=== PATIENT | male | born 1960 | race Caucasian/White ===

== ENCOUNTER 2017-10-25 10:28 | Inpatient (IN) | payer MEDICARE ==
[2017-10-25] MEDS: PIPER-TAZO 3.375 GM IV (PMX) 100 ML IVPB (11:10)
[2017-10-25] MEDS: morphine 2 MG INJ IV (11:10)
[2017-10-25 11:31] LABS: ADD MAN DIFF? NO
[2017-10-25 11:34] LABS: WHITE BLOOD COUNT 7.8 10^3/ul (4.8-10.8)
[2017-10-25 11:34] LABS: BASOPHILS % 0.1 % (0.0-2.0); EOSINOPHILS % 0.1 % (0.0-7.0); HEMATOCRIT 29.6 % (42.0-52.0); HEMOGLOBIN 10.1 g/dl (14.0-18.0); LYMPHOCYTES # 0.6 10^3/ul (0.8-2.9); LYMPHOCYTES % 7.7 % (15.0-51.0); MEAN CORPUSCULAR HEMOGLOBIN 28.9 pg (29.0-33.0); MEAN CORPUSCULAR HGB CONC 34.1 g/dl (32.0-37.0); MEAN CORPUSCULAR VOLUME 84.8 fl (82.0-101.0); MEAN PLATELET VOLUME 9.6 fl (7.4-10.4); MONOCYTE # 0.8 10^3/ul (0.3-0.9); MONOCYTES % 9.6 % (0.0-11.0); NEUTROPHIL # 6.4 10^3/ul (1.6-7.5); NEUTROPHILS % 81.6 % (39.0-77.0); PLATELET COUNT 222 10^3/UL (140-415); POSITIVE DIFF @See below; RED BLOOD COUNT 3.49 10^6/ul (4.70-6.10); RED CELL DISTRIBUTION WIDTH 13.5 % (11.5-14.5)
[2017-10-25 11:53] LABS: ALANINE AMINOTRANSFERASE 68 IU/L (13-69); ALBUMIN 3.7 g/dl (3.3-4.9); ALBUMIN/GLOBULIN RATIO 1.12; ALKALINE PHOSPHATASE 128 IU/L (42-121); ANION GAP 22 (8-16); ASPARTATE AMINO TRANSFERASE 62 IU/L (15-46); BILIRUBIN,INDIRECT 0.5 mg/dl (0-1.1); BILIRUBIN,TOTAL 0.5 mg/dl (0.2-1.3); BLOOD UREA NITROGEN 35 mg/dl (7-20); CALCIUM 8.5 mg/dl (8.4-10.2); CARBON DIOXIDE 22 mmol/L (21-31); CHLORIDE 84 mmol/L (97-110); CREATININE 2.24 mg/dl (0.61-1.24); GLUCOSE 131 mg/dl (70-220); POTASSIUM 5.1 mmol/L (3.5-5.1); SODIUM 123 mmol/L (135-144)
[2017-10-25] MEDS: SOD CHLORIDE 0.9% 2,040 ML IV (12:10)
[2017-10-25] MEDS: VANCOMYCIN 1 GM (PMX) 250 ML IVPB (12:11)
[2017-10-25 12:15] LABS: TROPONIN-I < 0.012 ng/ml (0.00-0.12)
[2017-10-25 12:45] LABS: INR 1.25; PARTIAL THROMBOPLASTIN TIME 40.8 Sec (25.0-35.0); PROTIME 15.9 Sec (11.9-14.9); PT RATIO 1.2
[2017-10-25] MEDS ORDERED: ZOLPIDEM 5 MG TAB PO (13:00)
[2017-10-25] MEDS ORDERED: HYDROCODONE/APAP (5/325) TAB PO (13:00)
[2017-10-25] MEDS ORDERED: ALBUTEROL 0.083% (NEB) 2.5 MG/3 ML AMP NEB (13:00)
[2017-10-25] MEDS ORDERED: NACL 0.9% 3 ML SYG IV (13:00)
[2017-10-25] MEDS ORDERED: VANCOMYCIN IV PER PHARMACY XX (13:00)
[2017-10-25 13:10] LABS: ANISOCYTOSIS 1+ (0-0); BAND NEUTROPHILS #M 2.5 10^3/ul (0.0-0.6); BAND NEUTROPHILS % (M) 33 % (0-4); ERYTHROBLAST% (NRBC) (M) 1 % (0-0); GIANT THROMBO% (M) 1 % (0-0); LYMPHOCYTES #M 0.6 10^3/ul (0.8-2.9); LYMPHOCYTES % (M) 8 % (15-51); METAMYELOCYTES %M 1 % (0-0); MONOCYTE #M 0.3 10^3/ul (0.3-0.9); MONOCYTES % (M) 4 % (0-11); MYELOCYTES % (M) 1 % (0-0); PLASMAC%(M) 1 % (0); PLATELET ESTIMATE NORMAL; POIKILOCYTOSIS 1+ (0-0); SEG NEUT #M 4.3 10^3/ul (1.6-7.5); SEGMENTED NEUTROPHILS (M) % 52 % (39-77); SMUDGE%M 5 % (0-0)
[2017-10-25 13:47] LABS: HEMOGLOBIN A1C 7.4 % (0-5.9)
[2017-10-25] MEDS ORDERED: GLUCAGON 1 MG INJ IM (14:00)
[2017-10-25] MEDS ORDERED: DEXTROSE 50% 50 ML SYRINGE IV ×2 (14:00)
[2017-10-25] MEDS ORDERED: GLUCOSE GEL 15 GRAM TUBE BUCCAL (14:00)
[2017-10-25] MEDS ORDERED: IMIPENEM-CILAST 500MG IV (PMX) 100 ML IVPB (14:00)
[2017-10-25] MEDS ORDERED: GLUCOSE GEL 15 GRAM TUBE PO ×2 (14:00)
[2017-10-25 14:13] LABS: LACTIC ACID 1.1 mmol/L (0.5-2.0)
[2017-10-25 16:29] LABS: LACTIC ACID 1.3 mmol/L (0.5-2.0)
[2017-10-25 16:59] LABS: ANION GAP 11 (8-16); BLOOD UREA NITROGEN 29 mg/dl (7-20); CALCIUM 6.6 mg/dl (8.4-10.2); CARBON DIOXIDE 22 mmol/L (21-31); CHLORIDE 100 mmol/L (97-110); GLUCOSE 72 mg/dl (70-220); POTASSIUM 3.8 mmol/L (3.5-5.1); SODIUM 129 mmol/L (135-144)
[2017-10-25] MEDS: SOD CHLORIDE 0.9% 1,000 ML IV (17:05)
[2017-10-25] MEDS: ACETAMINOPHEN 325 MG TAB PO ×2 (17:06→20:23)
[2017-10-25] MEDS: FAMOTIDINE 20 MG TAB PO (17:06)
[2017-10-25] MEDS: INSULIN ASPART [NOVOLOG] 3 ML PEN SC (17:29)
[2017-10-25] MEDS: MEROPENEM 1 GM/50ML(PMX) 50 ML IVPB ×2 (18:22→20:36)
[2017-10-25 18:23] LABS: OSMOLALITY 265 mOsm/kg (280-295)
[2017-10-25] MEDS: SENNA/DOCUSATE NA (8.6MG/50MG) TAB PO (20:24)
[2017-10-25] MEDS: TAMSULOSIN (SR) 0.4 MG CAP PO (20:24)
[2017-10-25] MEDS: LEVETIRACETAM 500 MG TAB PO (20:24)
[2017-10-25] MEDS: ATORVASTATIN 40 MG TAB PO (20:24)
[2017-10-25] MEDS ORDERED: AMITRIPTYLINE 50 MG TAB PO (21:00)
[2017-10-25 21:45] LABS: SODIUM 123 mmol/L (135-144)
[2017-10-26] MEDS: SOD CHLORIDE 0.9% 1,000 ML IV ×3 (01:54→14:34)
[2017-10-26 07:28] LABS: WHITE BLOOD COUNT 7.7 10^3/ul (4.8-10.8)
[2017-10-26 07:28] LABS: ABNORMAL IP MESSAGE 1; HEMATOCRIT 20.5 % (42.0-52.0); MEAN CORPUSCULAR HEMOGLOBIN 29.4 pg (29.0-33.0); MEAN CORPUSCULAR HGB CONC 34.1 g/dl (32.0-37.0); MEAN CORPUSCULAR VOLUME 86.1 fl (82.0-101.0); PLATELET COUNT 147 10^3/UL (140-415); POSITIVE DIFF @See below; RED BLOOD COUNT 2.38 10^6/ul (4.70-6.10); RED CELL DISTRIBUTION WIDTH 13.6 % (11.5-14.5)
[2017-10-26 07:36] LABS: ADD MAN DIFF? YES
[2017-10-26 07:39] LABS: ALANINE AMINOTRANSFERASE 60 IU/L (13-69); ALBUMIN 2.5 g/dl (3.3-4.9); ALBUMIN/GLOBULIN RATIO 0.89; ALKALINE PHOSPHATASE 84 IU/L (42-121); ANION GAP 11 (8-16); ASPARTATE AMINO TRANSFERASE 48 IU/L (15-46); BILIRUBIN,INDIRECT 0.3 mg/dl (0-1.1); BILIRUBIN,TOTAL 0.3 mg/dl (0.2-1.3); BLOOD UREA NITROGEN 32 mg/dl (7-20); CALCIUM 7.8 mg/dl (8.4-10.2); CARBON DIOXIDE 22 mmol/L (21-31); CHLORIDE 99 mmol/L (97-110); CREATININE 1.62 mg/dl (0.61-1.24); GLUCOSE 119 mg/dl (70-220); MAGNESIUM 1.6 mg/dl (1.7-2.5); POTASSIUM 4.3 mmol/L (3.5-5.1); SODIUM 128 mmol/L (135-144); TOTAL PROTEIN 5.3 g/dl (6.1-8.1)
[2017-10-26 07:48] LABS: ADD UMIC YES; UR ASCORBIC ACID NEGATIVE (NEGATIVE); UR BACTERIA FEW /HPF (NONE SEEN); UR BILIRUBIN (Dip) NEGATIVE (NEGATIVE); UR BLOOD (Dip) 3+ mg/dL (NEGATIVE); UR CLARITY SLIGHTLY CLOUDY (CLEAR); UR COLOR YELLOW (YELLOW); UR GLUCOSE (Dip) NEGATIVE (NEGATIVE); UR KETONES (Dip) NEGATIVE (NEGATIVE); UR LEUKOCYTE ESTERASE (Dip) NEGATIVE Leu/ul (NEGATIVE); UR NITRITE (Dip) NEGATIVE (NEGATIVE); UR RBC > 182 /HPF (0-5); UR TOTAL PROTEIN (Dip) 2+ mg/dl (NEGATIVE); UR UROBILINOGEN (Dip) NEGATIVE (NEGATIVE); UR WBC 13 /HPF (0-5)
[2017-10-26] MEDS: morphine 2 MG INJ IV (07:52)
[2017-10-26] MEDS: VANCOMYCIN 1 GM 250 ML IVPB (07:56)
[2017-10-26 07:57] LABS: CREATININE,URINE RANDOM 52.44 mg/dl (20-370)
[2017-10-26 07:57] LABS: SODIUM,URINE RANDOM 27 mmol/L (30-90)
[2017-10-26] MEDS: LEVETIRACETAM 500 MG TAB PO ×2 (07:57→21:17)
[2017-10-26] MEDS: SENNA/DOCUSATE NA (8.6MG/50MG) TAB PO ×2 (07:57→21:17)
[2017-10-26] MEDS: FAMOTIDINE 20 MG TAB PO (07:58)
[2017-10-26] MEDS ORDERED: VANCOMYCIN 750 MG in DEXTROSE 5% 150 ML IVPB (08:00)
[2017-10-26] MEDS: AMLODIPINE 5 MG TAB PO (08:08)
[2017-10-26] MEDS: NIFEdipine (XL) 60 MG TAB PO (08:08)
[2017-10-26] MEDS: ATENOLOL 100 MG TAB PO (08:09)
[2017-10-26] MEDS: MEROPENEM 1 GM/50ML(PMX) 50 ML IVPB ×2 (08:11→21:18)
[2017-10-26 08:34] LABS: OSMOLALITY,URINE 257 mOsm/kg (250-1200)
[2017-10-26] MEDS ORDERED: INSULIN GLARGINE [LANtus] 3 ML PEN SC (09:00)
[2017-10-26] MEDS: INSULIN ASPART [NOVOLOG] 3 ML PEN SC ×3 (09:12→16:59)
[2017-10-26] MEDS: INSULIN GLARGINE [LANtus] 3 ML PEN SC (09:12)
[2017-10-26 09:37] LABS: BAND NEUTROPHILS #M 0.7 10^3/ul (0.0-0.6); BAND NEUTROPHILS % (M) 10 % (0-4); EOSINOPHILS % (M) 3 % (0-7); LYMPHOCYTES % (M) 13 % (15-51); MONOCYTE #M 0.4 10^3/ul (0.3-0.9); MONOCYTES % (M) 6 % (0-11); PLATELET ESTIMATE NORMAL; POLYCHROMASIA 1+ (0-0); SEG NEUT #M 5.3 10^3/ul (1.6-7.5); SEGMENTED NEUTROPHILS (M) % 68 % (39-77)
[2017-10-26 11:54] LABS: HEMATOCRIT 22.7 % (42.0-52.0); HEMOGLOBIN 7.8 g/dl (14.0-18.0)
[2017-10-26] MEDS: HEPARIN 5,000 UNIT/0.5 ML VIAL SC (13:13)
[2017-10-26] MEDS: traMADol 50 MG TAB PO ×2 (14:46→21:17)
[2017-10-26 15:30] LABS: ANION GAP 12 (8-16); BLOOD UREA NITROGEN 26 mg/dl (7-20); CALCIUM 8.2 mg/dl (8.4-10.2); CARBON DIOXIDE 22 mmol/L (21-31); CHLORIDE 102 mmol/L (97-110); CREATININE 1.28 mg/dl (0.61-1.24); GLUCOSE 156 mg/dl (70-220); POTASSIUM 4.3 mmol/L (3.5-5.1); SODIUM 132 mmol/L (135-144)
[2017-10-26] MEDS: ATORVASTATIN 40 MG TAB PO (21:17)
[2017-10-26] MEDS: TAMSULOSIN (SR) 0.4 MG CAP PO (21:17)
[2017-10-27] MEDS: SOD CHLORIDE 0.9% 1,000 ML IV ×3 (04:22→21:24)
[2017-10-27] MEDS: INSULIN ASPART [NOVOLOG] 3 ML PEN SC ×3 (07:53→17:33)
[2017-10-27] MEDS: VANCOMYCIN 1 GM 250 ML IVPB ×2 (07:54→21:23)
[2017-10-27 08:37] LABS: WHITE BLOOD COUNT 4.7 10^3/ul (4.8-10.8)
[2017-10-27 08:37] LABS: ABNORMAL IP MESSAGE 1; HEMATOCRIT 19.3 % (42.0-52.0); MEAN CORPUSCULAR HEMOGLOBIN 28.8 pg (29.0-33.0); MEAN CORPUSCULAR HGB CONC 34.2 g/dl (32.0-37.0); MEAN CORPUSCULAR VOLUME 84.3 fl (82.0-101.0); MEAN PLATELET VOLUME 10.1 fl (7.4-10.4); PLATELET COUNT 135 10^3/UL (140-415); POSITIVE DIFF @See below; RED BLOOD COUNT 2.29 10^6/ul (4.70-6.10); RED CELL DISTRIBUTION WIDTH 13.7 % (11.5-14.5)
[2017-10-27 08:46] LABS: ADD MAN DIFF? YES; HEMOGLOBIN 6.6 g/dl (14.0-18.0)
[2017-10-27] MEDS: LEVETIRACETAM 500 MG TAB PO ×2 (09:00→21:23)
[2017-10-27] MEDS: FAMOTIDINE 20 MG TAB PO (09:00)
[2017-10-27] MEDS: ATENOLOL 100 MG TAB PO (09:00)
[2017-10-27] MEDS: SENNA/DOCUSATE NA (8.6MG/50MG) TAB PO ×2 (09:00→21:23)
[2017-10-27] MEDS: INSULIN GLARGINE [LANtus] 3 ML PEN SC (09:00)
[2017-10-27 09:02] LABS: ANION GAP 8 (8-16); BLOOD UREA NITROGEN 19 mg/dl (7-20); CARBON DIOXIDE 24 mmol/L (21-31); CHLORIDE 107 mmol/L (97-110); CREATININE 0.89 mg/dl (0.61-1.24); GLUCOSE 122 mg/dl (70-220); MAGNESIUM 1.7 mg/dl (1.7-2.5); PHOSPHORUS 2.6 mg/dl (2.5-4.9); POTASSIUM 4.1 mmol/L (3.5-5.1); SODIUM 135 mmol/L (135-144)
[2017-10-27 09:15] LABS: BAND NEUTROPHILS #M 0.6 10^3/ul (0.0-0.6); BAND NEUTROPHILS % (M) 13 % (0-4); GIANT THROMBO% (M) 2 % (0-0); LYMPHOCYTES #M 0.7 10^3/ul (0.8-2.9); LYMPHOCYTES % (M) 15 % (15-51); MONOCYTE #M 0.4 10^3/ul (0.3-0.9); MONOCYTES % (M) 10 % (0-11); PLATELET ESTIMATE DECREASED; SEG NEUT #M 2.9 10^3/ul (1.6-7.5); SEGMENTED NEUTROPHILS (M) % 62 % (39-77); SMUDGE%M 7 % (0-0)
[2017-10-27] MEDS: MEROPENEM 1 GM/50ML(PMX) 50 ML IVPB ×3 (10:05→21:24)
[2017-10-27 11:36] LABS: HEMATOCRIT 21.5 % (42.0-52.0); HEMOGLOBIN 7.4 g/dl (14.0-18.0); MEAN CORPUSCULAR HEMOGLOBIN 29.4 pg (29.0-33.0); MEAN CORPUSCULAR HGB CONC 34.4 g/dl (32.0-37.0); MEAN CORPUSCULAR VOLUME 85.3 fl (82.0-101.0); MEAN PLATELET VOLUME 9.6 fl (7.4-10.4); PLATELET COUNT 140 10^3/UL (140-415); POSITIVE DIFF @See below; RED BLOOD COUNT 2.52 10^6/ul (4.70-6.10); RED CELL DISTRIBUTION WIDTH 13.6 % (11.5-14.5)
[2017-10-27 11:45] LABS: ADD MAN DIFF? YES
[2017-10-27 12:40] LABS: ANISOCYTOSIS 1+ (0-0); BAND NEUTROPHILS #M 0.5 10^3/ul (0.0-0.6); BAND NEUTROPHILS % (M) 11 % (0-4); BASOPHILS % (M) 1 % (0-2); BURR CELLS 1+ (0-0); EOSINOPHILS % (M) 3 % (0-7); LYMPHOCYTES #M 1.1 10^3/ul (0.8-2.9); LYMPHOCYTES % (M) 23 % (15-51); MICROCYTOSIS 1+ (0-0); MONOCYTE #M 0.6 10^3/ul (0.3-0.9); MONOCYTES % (M) 12 % (0-11); PLATELET ESTIMATE NORMAL; POIKILOCYTOSIS 1+ (0-0); POLYCHROMASIA 1+ (0-0); SEG NEUT #M 2.5 10^3/ul (1.6-7.5); SEGMENTED NEUTROPHILS (M) % 50 % (39-77); SMUDGE%M 17 % (0-0)
[2017-10-27 14:22] LABS: CREATININE, RANDOM URINE 61 mg/dL (20-370); MICROALBUMIN 25.6 mg/dL; MICROALBUMIN/CREATININE RATIO 420 (<30)
[2017-10-27 15:50] LABS: IMMEDIATE SPIN CROSSMATCH 1 1
[2017-10-27] MEDS: TAMSULOSIN (SR) 0.4 MG CAP PO (21:23)
[2017-10-27] MEDS: ATORVASTATIN 40 MG TAB PO (21:24)
[2017-10-27] MEDS: traMADol 50 MG TAB PO (21:27)
[2017-10-27] MEDS: morphine 2 MG INJ IV (22:54)
[2017-10-28] MEDS: BUPIVACAINE 0.5% 30 ML VIAL INJ
[2017-10-28] MEDS: POLYMYXIN/BACITRACIN 1L IRRIG IRR
[2017-10-28] MEDS: BACITRACIN 50000 UNITS INJ IRR
[2017-10-28] MEDS: MEROPENEM 1 GM/50ML(PMX) 50 ML IVPB ×3 (05:30→21:44)
[2017-10-28 07:25] LABS: HEMATOCRIT 25.3 % (42.0-52.0); HEMOGLOBIN 8.6 g/dl (14.0-18.0); MEAN CORPUSCULAR VOLUME 82.4 fl (82.0-101.0); MEAN PLATELET VOLUME 9.8 fl (7.4-10.4); PLATELET COUNT 171 10^3/UL (140-415); POSITIVE DIFF @See below; RED BLOOD COUNT 3.07 10^6/ul (4.70-6.10); RED CELL DISTRIBUTION WIDTH 13.8 % (11.5-14.5)
[2017-10-28 07:28] LABS: ADD MAN DIFF? YES
[2017-10-28] MEDS ORDERED: MIDAZOLAM 1 MG/ML 2 ML INJ (07:55)
[2017-10-28] MEDS: INSULIN ASPART [NOVOLOG] 3 ML PEN SC ×3 (07:55→17:56)
[2017-10-28] MEDS ORDERED: FENTAnyl 50 MCG/ML VIAL (07:56)
[2017-10-28 07:57] LABS: ANION GAP 11 (8-16); BLOOD UREA NITROGEN 9 mg/dl (7-20); CALCIUM 8.2 mg/dl (8.4-10.2); CARBON DIOXIDE 24 mmol/L (21-31); CHLORIDE 103 mmol/L (97-110); CREATININE 0.59 mg/dl (0.61-1.24); GLUCOSE 124 mg/dl (70-220); MAGNESIUM 1.4 mg/dl (1.7-2.5); PHOSPHORUS 2.4 mg/dl (2.5-4.9); POTASSIUM 3.5 mmol/L (3.5-5.1); SODIUM 134 mmol/L (135-144)
[2017-10-28 08:11] LABS: BAND NEUTROPHILS #M 0.1 10^3/ul (0.0-0.6); BAND NEUTROPHILS % (M) 3 % (0-4); EOSINOPHILS % (M) 1 % (0-7); LYMPHOCYTES % (M) 34 % (15-51); MONOCYTE #M 0.3 10^3/ul (0.3-0.9); MONOCYTES % (M) 5 % (0-11); PLATELET ESTIMATE NORMAL; SEG NEUT #M 3.4 10^3/ul (1.6-7.5); SEGMENTED NEUTROPHILS (M) % 57 % (39-77); SMUDGE%M 9 % (0-0)
[2017-10-28] MEDS ORDERED: BUPIVACAINE 0.5% (SDV) 30 ML INJ (08:34)
[2017-10-28] MEDS ORDERED: LIDOCAINE 2% (SDV) 5 ML INJ (08:51)
[2017-10-28] MEDS ORDERED: CEFAZOLIN 1 GM INJ (08:51)
[2017-10-28] MEDS ORDERED: ETOMIDATE 20 MG INJ (08:51)
[2017-10-28] MEDS ORDERED: ONDANSETRON 4 MG INJ (08:54)
[2017-10-28] MEDS: SENNA/DOCUSATE NA (8.6MG/50MG) TAB PO ×2 (11:17→21:44)
[2017-10-28] MEDS: MAGNESIUM SULFATE 2 GM/50 ML 50 ML IVPB (11:17)
[2017-10-28] MEDS: LEVETIRACETAM 500 MG TAB PO ×2 (11:17→21:44)
[2017-10-28] MEDS: FAMOTIDINE 20 MG TAB PO (11:17)
[2017-10-28] MEDS: ATENOLOL 100 MG TAB PO (11:18)
[2017-10-28] MEDS: INSULIN GLARGINE [LANtus] 3 ML PEN SC (11:23)
[2017-10-28] MEDS: VANCOMYCIN 1 GM 250 ML IVPB ×2 (11:29→23:08)
[2017-10-28] MEDS ORDERED: ACETAMINOPHEN 325 MG TAB PO (11:30)
[2017-10-28] MEDS: HYDROCODONE/APAP (10/325) TAB PO ×4 (11:35→23:09)
[2017-10-28] MEDS: POTASSIUM PHOSPHATE 20 MEQ in SOD CHLORIDE 0.9% 250 ML IVPB (11:36)
[2017-10-28] MEDS: TAMSULOSIN (SR) 0.4 MG CAP PO (21:44)
[2017-10-28] MEDS: ATORVASTATIN 40 MG TAB PO (21:44)
[2017-10-28] MEDS: SOD CHLORIDE 0.9% 1,000 ML IV (21:46)
[2017-10-28 22:24] LABS: VANCOMYCIN,TROUGH 10.9 ug/ml (10.0-20.0)
[2017-10-29 05:51] LABS: ANION GAP 7 (8-16); BLOOD UREA NITROGEN 8 mg/dl (7-20); CALCIUM 7.7 mg/dl (8.4-10.2); CARBON DIOXIDE 26 mmol/L (21-31); CHLORIDE 107 mmol/L (97-110); CREATININE 0.66 mg/dl (0.61-1.24); GLUCOSE 164 mg/dl (70-220); MAGNESIUM 1.7 mg/dl (1.7-2.5); PHOSPHORUS 2.8 mg/dl (2.5-4.9); POTASSIUM 3.5 mmol/L (3.5-5.1); SODIUM 136 mmol/L (135-144)
[2017-10-29] MEDS: MEROPENEM 1 GM/50ML(PMX) 50 ML IVPB ×3 (06:35→23:00)
[2017-10-29] MEDS: FAMOTIDINE 20 MG TAB PO (08:13)
[2017-10-29] MEDS: LEVETIRACETAM 500 MG TAB PO ×2 (08:13→21:06)
[2017-10-29] MEDS: SENNA/DOCUSATE NA (8.6MG/50MG) TAB PO ×2 (08:13→21:06)
[2017-10-29] MEDS: HYDROCODONE/APAP (10/325) TAB PO ×3 (08:18→19:45)
[2017-10-29] MEDS: ATENOLOL 100 MG TAB PO (10:16)
[2017-10-29] MEDS: INSULIN GLARGINE [LANtus] 3 ML PEN SC (10:17)
[2017-10-29] MEDS: INSULIN ASPART [NOVOLOG] 3 ML PEN SC ×3 (10:18→17:36)
[2017-10-29] MEDS: VANCOMYCIN 1.25 GM in SOD CHLORIDE 0.9% 250 ML IVPB (12:12)
[2017-10-29] MEDS: morphine 2 MG INJ IV ×2 (17:43→23:00)
[2017-10-29] MEDS: TAMSULOSIN (SR) 0.4 MG CAP PO (21:06)
[2017-10-29] MEDS: ATORVASTATIN 40 MG TAB PO (21:06)
[2017-10-30] MEDS: VANCOMYCIN 1.25 GM in SOD CHLORIDE 0.9% 250 ML IVPB ×2 (00:11→12:12)
[2017-10-30] MEDS: HYDROCODONE/APAP (10/325) TAB PO ×5 (00:50→20:38)
[2017-10-30] MEDS: MEROPENEM 1 GM/50ML(PMX) 50 ML IVPB ×3 (06:08→20:40)
[2017-10-30] MEDS: HEPARIN 5,000 UNIT/0.5 ML VIAL SC ×2 (06:09→20:41)
[2017-10-30 07:32] LABS: INR 1.19; PROTIME 15.3 Sec (11.9-14.9); PT RATIO 1.2
[2017-10-30 07:33] LABS: PARTIAL THROMBOPLASTIN TIME 34.6 Sec (25.0-35.0)
[2017-10-30 07:43] LABS: ANION GAP 9 (8-16); BLOOD UREA NITROGEN 9 mg/dl (7-20); CARBON DIOXIDE 28 mmol/L (21-31); CHLORIDE 104 mmol/L (97-110); GLUCOSE 173 mg/dl (70-220); MAGNESIUM 1.6 mg/dl (1.7-2.5); PHOSPHORUS 2.7 mg/dl (2.5-4.9); POTASSIUM 3.7 mmol/L (3.5-5.1); SODIUM 137 mmol/L (135-144)
[2017-10-30] MEDS: SENNA/DOCUSATE NA (8.6MG/50MG) TAB PO ×2 (08:01→20:41)
[2017-10-30] MEDS: ATENOLOL 100 MG TAB PO (08:02)
[2017-10-30] MEDS: FAMOTIDINE 20 MG TAB PO (08:02)
[2017-10-30] MEDS: LEVETIRACETAM 500 MG TAB PO ×2 (08:02→20:41)
[2017-10-30] MEDS: INSULIN ASPART [NOVOLOG] 3 ML PEN SC ×7 (08:07→20:41)
[2017-10-30] MEDS: INSULIN GLARGINE [LANtus] 3 ML PEN SC (08:09)
[2017-10-30] MEDS: MAGNESIUM SULFATE 2 GM/50 ML 50 ML IVPB (09:47)
[2017-10-30] MEDS: AMLODIPINE 5 MG TAB PO (09:47)
[2017-10-30] MEDS: hydrALAzine 20 MG INJ IV (15:29)
[2017-10-30] MEDS: morphine 2 MG INJ IV (15:43)
[2017-10-30] MEDS: traMADol 50 MG TAB PO (17:45)
[2017-10-30] MEDS: ATORVASTATIN 40 MG TAB PO (20:41)
[2017-10-30] MEDS: TAMSULOSIN (SR) 0.4 MG CAP PO (20:41)
[2017-10-31] MEDS: VANCOMYCIN 1.25 GM in SOD CHLORIDE 0.9% 250 ML IVPB (00:20)
[2017-10-31] MEDS: ACCU-CHEK XX (00:58)
[2017-10-31] MEDS: hydrALAzine 20 MG INJ IV (02:29)
[2017-10-31] MEDS: MEROPENEM 1 GM/50ML(PMX) 50 ML IVPB ×3 (05:24→21:46)
[2017-10-31] MEDS: HYDROCODONE/APAP (10/325) TAB PO ×4 (06:49→20:25)
[2017-10-31 07:14] LABS: ABNORMAL IP MESSAGE 1; HEMATOCRIT 26.2 % (42.0-52.0); HEMOGLOBIN 8.7 g/dl (14.0-18.0); MEAN CORPUSCULAR HEMOGLOBIN 28.6 pg (29.0-33.0); MEAN CORPUSCULAR HGB CONC 33.2 g/dl (32.0-37.0); MEAN CORPUSCULAR VOLUME 86.2 fl (82.0-101.0); MEAN PLATELET VOLUME 9.8 fl (7.4-10.4); PLATELET COUNT 221 10^3/UL (140-415); POSITIVE DIFF @See below; RED BLOOD COUNT 3.04 10^6/ul (4.70-6.10); RED CELL DISTRIBUTION WIDTH 13.7 % (11.5-14.5)
[2017-10-31 07:14] LABS: WHITE BLOOD COUNT 7.9 10^3/ul (4.8-10.8)
[2017-10-31 07:15] LABS: ADD MAN DIFF? YES
[2017-10-31 07:40] LABS: ANION GAP 10 (8-16); BLOOD UREA NITROGEN 12 mg/dl (7-20); CALCIUM 8.2 mg/dl (8.4-10.2); CARBON DIOXIDE 27 mmol/L (21-31); CHLORIDE 103 mmol/L (97-110); CREATININE 0.77 mg/dl (0.61-1.24); GLUCOSE 165 mg/dl (70-220); SODIUM 136 mmol/L (135-144)
[2017-10-31] MEDS: SENNA/DOCUSATE NA (8.6MG/50MG) TAB PO ×2 (08:02→20:27)
[2017-10-31] MEDS: LEVETIRACETAM 500 MG TAB PO ×2 (08:02→20:26)
[2017-10-31] MEDS: ATENOLOL 100 MG TAB PO (08:02)
[2017-10-31] MEDS: AMLODIPINE 5 MG TAB PO (08:02)
[2017-10-31] MEDS: FAMOTIDINE 20 MG TAB PO (08:02)
[2017-10-31] MEDS: HEPARIN 5,000 UNIT/0.5 ML VIAL SC ×2 (08:05→20:31)
[2017-10-31] MEDS: INSULIN ASPART [NOVOLOG] 3 ML PEN SC ×7 (08:05→20:35)
[2017-10-31] MEDS: INSULIN GLARGINE [LANtus] 3 ML PEN SC (08:06)
[2017-10-31 09:14] LABS: ANISOCYTOSIS 1+ (0-0); BAND NEUTROPHILS #M 0.2 10^3/ul (0.0-0.6); BAND NEUTROPHILS % (M) 3 % (0-4); EOSINOPHILS % (M) 2 % (0-7); LYMPHOCYTES #M 2.2 10^3/ul (0.8-2.9); LYMPHOCYTES % (M) 28 % (15-51); MICROCYTOSIS 1+ (0-0); MONOCYTE #M 0.5 10^3/ul (0.3-0.9); MONOCYTES % (M) 7 % (0-11); PLATELET ESTIMATE NORMAL; POLYCHROMASIA 3+ (0-0); SEG NEUT #M 4.8 10^3/ul (1.6-7.5); SEGMENTED NEUTROPHILS (M) % 60 % (39-77); SMUDGE%M 9 % (0-0)
[2017-10-31 12:26] LABS: VANCOMYCIN,TROUGH 20.2 ug/ml (10.0-20.0)
[2017-10-31] MEDS: VANCOMYCIN 750 MG in DEXTROSE 5% 150 ML IVPB (17:32)
[2017-10-31] MEDS: ATORVASTATIN 40 MG TAB PO (20:27)
[2017-10-31] MEDS: TAMSULOSIN (SR) 0.4 MG CAP PO (20:27)
[2017-11-01] MEDS: HYDROCODONE/APAP (10/325) TAB PO ×5 (00:50→20:55)
[2017-11-01] MEDS: ACCU-CHEK XX (02:00)
[2017-11-01] MEDS: MEROPENEM 1 GM/50ML(PMX) 50 ML IVPB ×2 (05:48→14:52)
[2017-11-01 05:52] LABS: ABNORMAL IP MESSAGE 1; HEMATOCRIT 24.3 % (42.0-52.0); HEMOGLOBIN 8.1 g/dl (14.0-18.0); MEAN CORPUSCULAR HEMOGLOBIN 28.3 pg (29.0-33.0); MEAN CORPUSCULAR HGB CONC 33.3 g/dl (32.0-37.0); MEAN PLATELET VOLUME 9.9 fl (7.4-10.4); PLATELET COUNT 258 10^3/UL (140-415); POSITIVE DIFF @See below; RED BLOOD COUNT 2.86 10^6/ul (4.70-6.10); RED CELL DISTRIBUTION WIDTH 13.9 % (11.5-14.5)
[2017-11-01 05:52] LABS: WHITE BLOOD COUNT 7.3 10^3/ul (4.8-10.8)
[2017-11-01 06:26] LABS: ADD MAN DIFF? YES
[2017-11-01 06:40] LABS: ANION GAP 8 (8-16); BLOOD UREA NITROGEN 12 mg/dl (7-20); CALCIUM 8.6 mg/dl (8.4-10.2); CARBON DIOXIDE 30 mmol/L (21-31); CHLORIDE 105 mmol/L (97-110); CREATININE 0.71 mg/dl (0.61-1.24); GLUCOSE 119 mg/dl (70-220); POTASSIUM 4.1 mmol/L (3.5-5.1); SODIUM 139 mmol/L (135-144)
[2017-11-01] MEDS: VANCOMYCIN 750 MG in DEXTROSE 5% 150 ML IVPB (07:02)
[2017-11-01 07:49] LABS: BASOPHIL #M 0.1 10^3/ul (0.0-0.0); BASOPHILS % (M) 2 % (0-2); EOSINOPHILS % (M) 4 % (0-7); LYMPHOCYTES #M 1.6 10^3/ul (0.8-2.9); LYMPHOCYTES % (M) 22 % (15-51); MONOCYTE #M 0.6 10^3/ul (0.3-0.9); MONOCYTES % (M) 9 % (0-11); PLATELET ESTIMATE NORMAL; POLYCHROMASIA 1+ (0-0); SEGMENTED NEUTROPHILS (M) % 63 % (39-77); SMUDGE%M 16 % (0-0)
[2017-11-01] MEDS: INSULIN ASPART [NOVOLOG] 3 ML PEN SC ×7 (08:14→21:00)
[2017-11-01] MEDS: INSULIN GLARGINE [LANtus] 3 ML PEN SC (08:59)
[2017-11-01] MEDS: FAMOTIDINE 20 MG TAB PO (09:00)
[2017-11-01] MEDS: LEVETIRACETAM 500 MG TAB PO ×2 (09:00→21:00)
[2017-11-01] MEDS: AMLODIPINE 5 MG TAB PO (09:00)
[2017-11-01] MEDS: HEPARIN 5,000 UNIT/0.5 ML VIAL SC ×2 (09:01→21:02)
[2017-11-01] MEDS: SENNA/DOCUSATE NA (8.6MG/50MG) TAB PO ×2 (09:01→21:00)
[2017-11-01] MEDS: ATENOLOL 100 MG TAB PO (09:01)
[2017-11-01] MEDS: morphine 2 MG INJ IV ×4 (10:20→23:29)
[2017-11-01] MEDS: LEVOFLOXACIN 750MG/D5W (PMX) 150 ML IVPB (17:59)
[2017-11-01] MEDS: ATORVASTATIN 40 MG TAB PO (21:00)
[2017-11-01] MEDS: TAMSULOSIN (SR) 0.4 MG CAP PO (21:00)
[2017-11-02] MEDS: ACCU-CHEK XX (02:00)
[2017-11-02] MEDS: HYDROCODONE/APAP (10/325) TAB PO ×5 (06:05→23:12)
[2017-11-02 06:07] LABS: ADD MAN DIFF? NO
[2017-11-02 06:11] LABS: WHITE BLOOD COUNT 8.4 10^3/ul (4.8-10.8)
[2017-11-02 06:11] LABS: BASOPHILS % 0.1 % (0.0-2.0); EOSINOPHILS # 0.1 10^3/ul (0.0-0.5); EOSINOPHILS % 1.4 % (0.0-7.0); HEMATOCRIT 26.4 % (42.0-52.0); HEMOGLOBIN 8.6 g/dl (14.0-18.0); LYMPHOCYTES # 1.9 10^3/ul (0.8-2.9); LYMPHOCYTES % 22.5 % (15.0-51.0); MEAN CORPUSCULAR HGB CONC 32.6 g/dl (32.0-37.0); MEAN PLATELET VOLUME 9.7 fl (7.4-10.4); MONOCYTE # 1.4 10^3/ul (0.3-0.9); MONOCYTES % 17.2 % (0.0-11.0); NEUTROPHIL # 4.5 10^3/ul (1.6-7.5); NEUTROPHILS % 54.2 % (39.0-77.0); PLATELET COUNT 291 10^3/UL (140-415); RED BLOOD COUNT 3.07 10^6/ul (4.70-6.10); RED CELL DISTRIBUTION WIDTH 13.8 % (11.5-14.5)
[2017-11-02 06:35] LABS: ANION GAP 8 (8-16); BLOOD UREA NITROGEN 12 mg/dl (7-20); CALCIUM 8.7 mg/dl (8.4-10.2); CARBON DIOXIDE 31 mmol/L (21-31); CHLORIDE 103 mmol/L (97-110); CREATININE 0.83 mg/dl (0.61-1.24); GLUCOSE 134 mg/dl (70-220); POTASSIUM 4.2 mmol/L (3.5-5.1); SODIUM 138 mmol/L (135-144)
[2017-11-02] MEDS: INSULIN ASPART [NOVOLOG] 3 ML PEN SC ×8 (08:00→21:00)
[2017-11-02] MEDS: HEPARIN 5,000 UNIT/0.5 ML VIAL SC ×2 (08:38→22:02)
[2017-11-02] MEDS: INSULIN GLARGINE [LANtus] 3 ML PEN SC (08:38)
[2017-11-02] MEDS: LEVETIRACETAM 500 MG TAB PO ×2 (08:44→22:00)
[2017-11-02] MEDS: SENNA/DOCUSATE NA (8.6MG/50MG) TAB PO ×2 (08:45→22:00)
[2017-11-02] MEDS: AMLODIPINE 5 MG TAB PO (08:45)
[2017-11-02] MEDS: FAMOTIDINE 20 MG TAB PO (08:46)
[2017-11-02] MEDS: ATENOLOL 100 MG TAB PO (08:46)
[2017-11-02] MEDS: morphine 2 MG INJ IV (13:02)
[2017-11-02] MEDS: DOCUSATE SODIUM 100 MG CAP PO (13:37)
[2017-11-02] MEDS: POLYETHYLENE GLYCOL 17 GM PACKET PO (17:31)
[2017-11-02] MEDS: LEVOFLOXACIN 750MG/D5W (PMX) 150 ML IVPB (17:34)
[2017-11-02] MEDS: ATORVASTATIN 40 MG TAB PO (22:00)
[2017-11-02] MEDS: TAMSULOSIN (SR) 0.4 MG CAP PO (22:00)
[2017-11-03] MEDS: ACCU-CHEK XX (02:00)
[2017-11-03] MEDS: HYDROCODONE/APAP (10/325) TAB PO ×5 (03:05→21:50)
[2017-11-03 05:55] LABS: WHITE BLOOD COUNT 7.9 10^3/ul (4.8-10.8)
[2017-11-03 05:55] LABS: HEMATOCRIT 27.2 % (42.0-52.0); MEAN CORPUSCULAR HEMOGLOBIN 28.7 pg (29.0-33.0); MEAN CORPUSCULAR HGB CONC 33.1 g/dl (32.0-37.0); MEAN CORPUSCULAR VOLUME 86.6 fl (82.0-101.0); MEAN PLATELET VOLUME 9.8 fl (7.4-10.4); PLATELET COUNT 304 10^3/UL (140-415); RED BLOOD COUNT 3.14 10^6/ul (4.70-6.10); RED CELL DISTRIBUTION WIDTH 13.5 % (11.5-14.5)
[2017-11-03 06:10] LABS: ADD MAN DIFF? YES
[2017-11-03 06:34] LABS: ANION GAP 8 (8-16); BLOOD UREA NITROGEN 17 mg/dl (7-20); CALCIUM 8.7 mg/dl (8.4-10.2); CARBON DIOXIDE 30 mmol/L (21-31); CHLORIDE 104 mmol/L (97-110); CREATININE 0.83 mg/dl (0.61-1.24); GLUCOSE 152 mg/dl (70-220); POTASSIUM 4.2 mmol/L (3.5-5.1); SODIUM 138 mmol/L (135-144)
[2017-11-03] MEDS: INSULIN ASPART [NOVOLOG] 3 ML PEN SC ×7 (08:00→21:00)
[2017-11-03] MEDS: POLYETHYLENE GLYCOL 17 GM PACKET PO (08:09)
[2017-11-03] MEDS: FAMOTIDINE 20 MG TAB PO (08:10)
[2017-11-03] MEDS: ATENOLOL 100 MG TAB PO (08:11)
[2017-11-03] MEDS: LEVETIRACETAM 500 MG TAB PO ×2 (08:12→21:50)
[2017-11-03] MEDS: AMLODIPINE 5 MG TAB PO (08:12)
[2017-11-03] MEDS: SENNA/DOCUSATE NA (8.6MG/50MG) TAB PO ×2 (08:12→21:49)
[2017-11-03] MEDS: HEPARIN 5,000 UNIT/0.5 ML VIAL SC ×2 (08:15→21:52)
[2017-11-03] MEDS: INSULIN GLARGINE [LANtus] 3 ML PEN SC (08:18)
[2017-11-03] MEDS: HYDROmorphONE 0.5 MG/0.5 ML SYG IV (13:58)
[2017-11-03] MEDS: LEVOFLOXACIN 750MG/D5W (PMX) 150 ML IVPB (17:53)
[2017-11-03] MEDS: ATORVASTATIN 40 MG TAB PO (21:49)
[2017-11-03] MEDS: TAMSULOSIN (SR) 0.4 MG CAP PO (21:50)
[2017-11-04] MEDS: ACCU-CHEK XX (02:00)
[2017-11-04] MEDS: HYDROCODONE/APAP (10/325) TAB PO ×5 (02:50→22:26)
[2017-11-04 06:13] LABS: ADD MAN DIFF? NO
[2017-11-04 06:21] LABS: BASOPHILS % 0.4 % (0.0-2.0); EOSINOPHILS # 0.1 10^3/ul (0.0-0.5); EOSINOPHILS % 1.1 % (0.0-7.0); HEMATOCRIT 27.3 % (42.0-52.0); HEMOGLOBIN 9.1 g/dl (14.0-18.0); LYMPHOCYTES % 21.5 % (15.0-51.0); MEAN CORPUSCULAR HEMOGLOBIN 28.7 pg (29.0-33.0); MEAN CORPUSCULAR HGB CONC 33.3 g/dl (32.0-37.0); MEAN CORPUSCULAR VOLUME 86.1 fl (82.0-101.0); MEAN PLATELET VOLUME 10.1 fl (7.4-10.4); MONOCYTE # 1.5 10^3/ul (0.3-0.9); MONOCYTES % 15.9 % (0.0-11.0); NEUTROPHIL # 5.5 10^3/ul (1.6-7.5); NEUTROPHILS % 58.5 % (39.0-77.0); PLATELET COUNT 351 10^3/UL (140-415); RED BLOOD COUNT 3.17 10^6/ul (4.70-6.10); RED CELL DISTRIBUTION WIDTH 13.5 % (11.5-14.5)
[2017-11-04 06:21] LABS: WHITE BLOOD COUNT 9.4 10^3/ul (4.8-10.8)
[2017-11-04 06:57] LABS: ANION GAP 12 (8-16); BLOOD UREA NITROGEN 19 mg/dl (7-20); CALCIUM 8.9 mg/dl (8.4-10.2); CARBON DIOXIDE 29 mmol/L (21-31); CHLORIDE 102 mmol/L (97-110); GLUCOSE 129 mg/dl (70-220); POTASSIUM 4.5 mmol/L (3.5-5.1); SODIUM 138 mmol/L (135-144)
[2017-11-04] MEDS: INSULIN ASPART [NOVOLOG] 3 ML PEN SC ×9 (08:00→21:00)
[2017-11-04] MEDS: HEPARIN 5,000 UNIT/0.5 ML VIAL SC ×2 (09:00→21:00)
[2017-11-04] MEDS: SENNA/DOCUSATE NA (8.6MG/50MG) TAB PO ×2 (09:00→21:00)
[2017-11-04] MEDS: POLYETHYLENE GLYCOL 17 GM PACKET PO (09:00)
[2017-11-04] MEDS: INSULIN GLARGINE [LANtus] 3 ML PEN SC (09:13)
[2017-11-04] MEDS: LEVETIRACETAM 500 MG TAB PO ×2 (09:17→21:00)
[2017-11-04] MEDS: AMLODIPINE 5 MG TAB PO (09:18)
[2017-11-04] MEDS: FAMOTIDINE 20 MG TAB PO (09:18)
[2017-11-04] MEDS: ATENOLOL 100 MG TAB PO (09:18)
[2017-11-04] MEDS: LEVOFLOXACIN 750MG/D5W (PMX) 150 ML IVPB (17:09)
[2017-11-04] MEDS: TAMSULOSIN (SR) 0.4 MG CAP PO (21:00)
[2017-11-04] MEDS: ATORVASTATIN 40 MG TAB PO (21:00)
[2017-11-04] MEDS: ONDANSETRON 4 MG INJ IV (22:28)
[2017-11-05] MEDS: ACCU-CHEK XX (02:00)
[2017-11-05] MEDS: HYDROCODONE/APAP (10/325) TAB PO ×5 (03:25→20:57)
[2017-11-05] MEDS: INSULIN ASPART [NOVOLOG] 3 ML PEN SC ×7 (08:00→21:00)
[2017-11-05] MEDS: INSULIN GLARGINE [LANtus] 3 ML PEN SC (08:13)
[2017-11-05] MEDS: LEVETIRACETAM 500 MG TAB PO ×2 (08:33→22:38)
[2017-11-05] MEDS: AMLODIPINE 5 MG TAB PO (08:34)
[2017-11-05] MEDS: FAMOTIDINE 20 MG TAB PO (08:34)
[2017-11-05] MEDS: ATENOLOL 100 MG TAB PO (08:34)
[2017-11-05] MEDS: SENNA/DOCUSATE NA (8.6MG/50MG) TAB PO ×2 (08:39→21:00)
[2017-11-05] MEDS: POLYETHYLENE GLYCOL 17 GM PACKET PO (08:39)
[2017-11-05] MEDS: HEPARIN 5,000 UNIT/0.5 ML VIAL SC (08:40)
[2017-11-05] MEDS: LEVOFLOXACIN 750MG/D5W (PMX) 150 ML IVPB (17:32)
[2017-11-05] MEDS: TAMSULOSIN (SR) 0.4 MG CAP PO (22:38)
[2017-11-05] MEDS: ATORVASTATIN 40 MG TAB PO (22:38)
[2017-11-06] MEDS: HYDROCODONE/APAP (10/325) TAB PO ×4 (01:09→15:55)
[2017-11-06] MEDS: ONDANSETRON 4 MG INJ IV ×2 (01:10→11:38)
[2017-11-06] MEDS: ACCU-CHEK XX (02:00)
[2017-11-06] MEDS: INSULIN ASPART [NOVOLOG] 3 ML PEN SC ×6 (07:51→18:05)
[2017-11-06] MEDS: SENNA/DOCUSATE NA (8.6MG/50MG) TAB PO (09:00)
[2017-11-06] MEDS: POLYETHYLENE GLYCOL 17 GM PACKET PO (09:00)
[2017-11-06] MEDS: INSULIN GLARGINE [LANtus] 3 ML PEN SC (09:03)
[2017-11-06] MEDS: LEVETIRACETAM 500 MG TAB PO (09:04)
[2017-11-06] MEDS: FAMOTIDINE 20 MG TAB PO (09:04)
[2017-11-06] MEDS: ATENOLOL 100 MG TAB PO (09:05)
[2017-11-06] MEDS: AMLODIPINE 5 MG TAB PO (09:05)
[2017-11-06] MEDS: LEVOFLOXACIN 750 MG TABLET PO (18:00)
[2017-11-07] MEDS ORDERED: LEVOFLOXACIN 750 MG TABLET PO (18:00)
== END 2017-11-06 20:01 | disposition home health service (06) | DRG 628 ==
LOC: PP2 10-29 01:54 → E/R 10:28 → TEL 12:20
PROC: 0QBL0ZZ Excision of Right Tarsal, Open Approach (ICD-10-PCS; principal; 2017-10-28 07:48)
PROC: 0J9Q0ZZ Drainage of Right Foot Subcutaneous Tissue and Fascia, Open Approach (ICD-10-PCS; 2017-10-28 07:48)
PROC: 30233N1 Transfusion of Nonautologous Red Blood Cells into Peripheral Vein, Percutaneous Approach (ICD-10-PCS; 2017-10-28 07:48)
DX: E11.621 Type 2 diabetes mellitus with foot ulcer (principal); J18.9 Pneumonia, unspecified organism; L97.419 Non-pressure chronic ulcer of right heel and midfoot with unspecified severity; I96 Gangrene, not elsewhere classified; I70.261 Atherosclerosis of native arteries of extremities with gangrene, right leg; E87.1 Hypo-osmolality and hyponatremia; D62 Acute posthemorrhagic anemia; L02.611 Cutaneous abscess of right foot; E11.52 Type 2 diabetes mellitus with diabetic peripheral angiopathy with gangrene; G92 Toxic encephalopathy; N17.9 Acute kidney failure, unspecified; T65.91XA Toxic effect of unspecified substance, accidental (unintentional), initial encounter; T40.2X1A Poisoning by other opioids, accidental (unintentional), initial encounter; R41.82 Altered mental status, unspecified; Z89.512 Acquired absence of left leg below knee; Z95.1 Presence of aortocoronary bypass graft; D50.0 Iron deficiency anemia secondary to blood loss (chronic); L89.610 Pressure ulcer of right heel, unstageable; G40.909 Epilepsy, unspecified, not intractable, without status epilepticus
CPT/HCPCS: 36415; 36430; 71045; 74176; 76775; 80048; 80053; 80202; 81001; 81003; 82043; 82962; 83036; 83605; 83735; 83930; 83935; 84100; 84155; 84295; 84300; 84484; 85014; 85018; 85025; 85610; 85730; 86850; 86900; 86901; 86920; 87040; 87070; 87075; 87086; 88304; 93005; 96374; 96375; 97110; 97163; 97166; 97168; 97530; 99291-25

== ENCOUNTER 2017-12-13 14:37 | Inpatient (IN) | payer MEDICARE ==
[2017-12-13] MEDS: PIPER-TAZO 3.375 GM IV (PMX) 100 ML IVPB (16:28)
[2017-12-13] MEDS: ONDANSETRON 4 MG INJ IV (16:28)
[2017-12-13] MEDS: morphine 4 MG/ML VIAL IV (16:29)
[2017-12-13] MEDS ORDERED: ONDANSETRON 4 MG INJ IV (16:30)
[2017-12-13] MEDS ORDERED: ACETAMINOPHEN 325 MG TAB PO (16:30)
[2017-12-13 16:35] LABS: ADD MAN DIFF? NO
[2017-12-13 16:36] LABS: WHITE BLOOD COUNT 15.7 10^3/ul (4.8-10.8)
[2017-12-13 16:36] LABS: ABNORMAL IP MESSAGE 1; BASOPHILS % 0.3 % (0.0-2.0); EOSINOPHILS # 0.2 10^3/ul (0.0-0.5); HEMATOCRIT 29.5 % (42.0-52.0); HEMOGLOBIN 9.6 g/dl (14.0-18.0); LYMPHOCYTES # 2.1 10^3/ul (0.8-2.9); LYMPHOCYTES % 13.2 % (15.0-51.0); MEAN CORPUSCULAR HEMOGLOBIN 28.2 pg (29.0-33.0); MEAN CORPUSCULAR HGB CONC 32.5 g/dl (32.0-37.0); MEAN CORPUSCULAR VOLUME 86.5 fl (82.0-101.0); MEAN PLATELET VOLUME 9.5 fl (7.4-10.4); MONOCYTE # 1.9 10^3/ul (0.3-0.9); MONOCYTES % 11.8 % (0.0-11.0); NEUTROPHIL # 11.3 10^3/ul (1.6-7.5); PLATELET COUNT 308 10^3/UL (140-415); POSITIVE DIFF @See below; RED BLOOD COUNT 3.41 10^6/ul (4.70-6.10)
[2017-12-13 16:53] LABS: ALANINE AMINOTRANSFERASE 104 IU/L (13-69); ALBUMIN 4.2 g/dl (3.3-4.9); ALBUMIN/GLOBULIN RATIO 1.05; ALKALINE PHOSPHATASE 151 IU/L (42-121); ANION GAP 17 (8-16); ASPARTATE AMINO TRANSFERASE 57 IU/L (15-46); BILIRUBIN,INDIRECT 0.3 mg/dl (0-1.1); BILIRUBIN,TOTAL 0.3 mg/dl (0.2-1.3); BLOOD UREA NITROGEN 33 mg/dl (7-20); CALCIUM 9.2 mg/dl (8.4-10.2); CARBON DIOXIDE 24 mmol/L (21-31); CHLORIDE 99 mmol/L (97-110); CREATININE 1.32 mg/dl (0.61-1.24); GLUCOSE 128 mg/dl (70-220); POTASSIUM 4.6 mmol/L (3.5-5.1); SODIUM 135 mmol/L (135-144); TOTAL PROTEIN 8.2 g/dl (6.1-8.1)
[2017-12-13 16:57] LABS: INR 1.18; PROTIME 15.2 Sec (11.9-14.9); PT RATIO 1.2
[2017-12-13] MEDS: VANCOMYCIN 1 GM (PMX) 250 ML IVPB (17:04)
[2017-12-13 17:06] LABS: TROPONIN-I < 0.012 ng/ml (0.000-0.120)
[2017-12-13 17:24] LABS: ADD UMIC NO; UR ASCORBIC ACID 20 mg/dL (NEGATIVE); UR BILIRUBIN (Dip) NEGATIVE (NEGATIVE); UR BLOOD (Dip) NEGATIVE (NEGATIVE); UR CLARITY CLEAR (CLEAR); UR COLOR YELLOW (YELLOW); UR GLUCOSE (Dip) NEGATIVE (NEGATIVE); UR KETONES (Dip) NEGATIVE (NEGATIVE); UR LEUKOCYTE ESTERASE (Dip) NEGATIVE Leu/ul (NEGATIVE); UR NITRITE (Dip) NEGATIVE (NEGATIVE); UR SPECIFIC GRAVITY (Dip) 1.009 (1.003-1.030); UR TOTAL PROTEIN (Dip) NEGATIVE (NEGATIVE); UR UROBILINOGEN (Dip) NEGATIVE (NEGATIVE)
[2017-12-13] MEDS ORDERED: DOCUSATE SODIUM 100 MG CAP PO (17:30)
[2017-12-13] MEDS ORDERED: VANCOMYCIN IV PER PHARMACY XX (17:30)
[2017-12-13] MEDS ORDERED: NACL 0.9% 3 ML SYG IV (17:30)
[2017-12-13] MEDS ORDERED: traMADol 50 MG TAB PO (17:30)
[2017-12-13] MEDS ORDERED: IBUPROFEN 600 MG TAB PO (17:30)
[2017-12-13] MEDS: INSULIN ASPART [NOVOLOG] 3 ML PEN SC ×2 (18:00→21:27)
[2017-12-13] MEDS ORDERED: GLUCOSE GEL 15 GRAM TUBE BUCCAL (18:00)
[2017-12-13] MEDS ORDERED: DEXTROSE 50% 50 ML SYRINGE IV ×2 (18:00)
[2017-12-13] MEDS ORDERED: GLUCOSE GEL 15 GRAM TUBE PO ×2 (18:00)
[2017-12-13] MEDS ORDERED: GLUCAGON 1 MG INJ IM (18:00)
[2017-12-13] MEDS: 1/2 NS + KCL 20 MEQ 1,000 ML IV (21:07)
[2017-12-13] MEDS: LOSARTAN 50 MG TAB PO (21:24)
[2017-12-13] MEDS: TAMSULOSIN (SR) 0.4 MG CAP PO (21:24)
[2017-12-13] MEDS: ATORVASTATIN 20 MG TAB PO (21:24)
[2017-12-13 21:34] LABS: LACTIC ACID 0.8 mmol/L (0.5-2.0)
[2017-12-13 23:20] LABS: LACTIC ACID 1.6 mmol/L (0.5-2.0)
[2017-12-14] MEDS: PIPER-TAZO 3.375 GM IV (PMX) 100 ML IVPB ×5 (00:09→23:43)
[2017-12-14] MEDS: HYDROCODONE/APAP (5/325) TAB PO ×3 (00:13→20:21)
[2017-12-14] MEDS: VANCOMYCIN 750 MG in SOD CHLORIDE 0.9% 150 ML IVPB ×2 (01:42→13:45)
[2017-12-14] MEDS: INSULIN ASPART [NOVOLOG] 3 ML PEN SC ×9 (01:49→20:37)
[2017-12-14] MEDS ORDERED: ACCU-CHEK XX (02:00)
[2017-12-14] MEDS: 1/2 NS + KCL 20 MEQ 1,000 ML IV (04:00)
[2017-12-14 05:43] LABS: ADD MAN DIFF? NO
[2017-12-14 05:47] LABS: ABNORMAL IP MESSAGE 1; BASOPHILS % 0.2 % (0.0-2.0); EOSINOPHILS # 0.4 10^3/ul (0.0-0.5); EOSINOPHILS % 3.1 % (0.0-7.0); HEMATOCRIT 26.1 % (42.0-52.0); HEMOGLOBIN 8.5 g/dl (14.0-18.0); LYMPHOCYTES # 2.1 10^3/ul (0.8-2.9); LYMPHOCYTES % 17.7 % (15.0-51.0); MEAN CORPUSCULAR HEMOGLOBIN 27.7 pg (29.0-33.0); MEAN CORPUSCULAR HGB CONC 32.6 g/dl (32.0-37.0); MEAN PLATELET VOLUME 9.5 fl (7.4-10.4); MONOCYTE # 1.9 10^3/ul (0.3-0.9); MONOCYTES % 16.4 % (0.0-11.0); NEUTROPHIL # 7.1 10^3/ul (1.6-7.5); NEUTROPHILS % 60.6 % (39.0-77.0); PLATELET COUNT 254 10^3/UL (140-415); POSITIVE DIFF @See below; RED BLOOD COUNT 3.07 10^6/ul (4.70-6.10)
[2017-12-14 05:47] LABS: WHITE BLOOD COUNT 11.7 10^3/ul (4.8-10.8)
[2017-12-14 07:02] LABS: ANION GAP 12 (8-16); BLOOD UREA NITROGEN 23 mg/dl (7-20); CALCIUM 8.6 mg/dl (8.4-10.2); CARBON DIOXIDE 28 mmol/L (21-31); CHLORIDE 103 mmol/L (97-110); CREATININE 0.96 mg/dl (0.61-1.24); GLUCOSE 174 mg/dl (70-220); MAGNESIUM 1.9 mg/dl (1.7-2.5); PHOSPHORUS 3.8 mg/dl (2.5-4.9); POTASSIUM 5.1 mmol/L (3.5-5.1); SODIUM 138 mmol/L (135-144)
[2017-12-14 07:51] LABS: HEMOGLOBIN A1C 6.2 % (0-5.9)
[2017-12-14] MEDS: morphine 2 MG INJ IV (09:47)
[2017-12-14] MEDS: POLYETHYLENE GLYCOL 17 GM PACKET PO (11:17)
[2017-12-14] MEDS: ASPIRIN 81 MG TAB PO (11:18)
[2017-12-14] MEDS: FUROSEMIDE 20 MG TAB PO (11:19)
[2017-12-14] MEDS: LOSARTAN 50 MG TAB PO ×2 (11:19→20:33)
[2017-12-14] MEDS: CLOPIDOGREL 75 MG TAB PO (11:20)
[2017-12-14] MEDS: NIFEdipine (XL) 60 MG TAB PO (11:20)
[2017-12-14] MEDS: ATENOLOL 100 MG TAB PO (11:22)
[2017-12-14] MEDS: INSULIN GLARGINE [LANtus] 3 ML PEN SC (12:11)
[2017-12-14] MEDS: ATORVASTATIN 20 MG TAB PO (20:32)
[2017-12-14] MEDS: TAMSULOSIN (SR) 0.4 MG CAP PO (20:32)
[2017-12-14] MEDS: HEPARIN 5,000 UNIT/0.5 ML VIAL SC (20:39)
[2017-12-15 02:23] LABS: VANCOMYCIN,TROUGH 13.3 ug/ml (10.0-20.0)
[2017-12-15] MEDS: HYDROCODONE/APAP (5/325) TAB PO ×5 (02:25→21:33)
[2017-12-15] MEDS: hydrALAzine 20 MG INJ IV (02:27)
[2017-12-15] MEDS: ACCU-CHEK XX (02:34)
[2017-12-15] MEDS: VANCOMYCIN 750 MG in SOD CHLORIDE 0.9% 150 ML IVPB ×2 (02:34→12:56)
[2017-12-15] MEDS: PIPER-TAZO 3.375 GM IV (PMX) 100 ML IVPB ×4 (05:57→23:58)
[2017-12-15 06:22] LABS: ADD MAN DIFF? NO
[2017-12-15 06:29] LABS: ABNORMAL IP MESSAGE 1; BASOPHILS % 0.2 % (0.0-2.0); EOSINOPHILS # 0.3 10^3/ul (0.0-0.5); EOSINOPHILS % 2.7 % (0.0-7.0); HEMATOCRIT 27.1 % (42.0-52.0); LYMPHOCYTES # 2.1 10^3/ul (0.8-2.9); LYMPHOCYTES % 17.2 % (15.0-51.0); MEAN CORPUSCULAR HEMOGLOBIN 28.3 pg (29.0-33.0); MEAN CORPUSCULAR HGB CONC 33.2 g/dl (32.0-37.0); MEAN CORPUSCULAR VOLUME 85.2 fl (82.0-101.0); MEAN PLATELET VOLUME 9.7 fl (7.4-10.4); MONOCYTE # 1.7 10^3/ul (0.3-0.9); MONOCYTES % 13.7 % (0.0-11.0); NEUTROPHIL # 7.8 10^3/ul (1.6-7.5); NEUTROPHILS % 64.5 % (39.0-77.0); PLATELET COUNT 293 10^3/UL (140-415); POSITIVE DIFF @See below; RED BLOOD COUNT 3.18 10^6/ul (4.70-6.10); RED CELL DISTRIBUTION WIDTH 12.8 % (11.5-14.5)
[2017-12-15 06:29] LABS: WHITE BLOOD COUNT 12.1 10^3/ul (4.8-10.8)
[2017-12-15 07:01] LABS: ANION GAP 11 (8-16); BLOOD UREA NITROGEN 13 mg/dl (7-20); CALCIUM 8.6 mg/dl (8.4-10.2); CARBON DIOXIDE 26 mmol/L (21-31); CHLORIDE 104 mmol/L (97-110); CREATININE 0.77 mg/dl (0.61-1.24); GLUCOSE 91 mg/dl (70-220); POTASSIUM 3.9 mmol/L (3.5-5.1); SODIUM 137 mmol/L (135-144)
[2017-12-15] MEDS: INSULIN ASPART [NOVOLOG] 3 ML PEN SC ×7 (08:09→20:19)
[2017-12-15] MEDS: POLYETHYLENE GLYCOL 17 GM PACKET PO (08:10)
[2017-12-15] MEDS: NIFEdipine (XL) 60 MG TAB PO (08:11)
[2017-12-15] MEDS: ASPIRIN 81 MG TAB PO (08:11)
[2017-12-15] MEDS: LOSARTAN 50 MG TAB PO ×2 (08:12→20:05)
[2017-12-15] MEDS: FUROSEMIDE 20 MG TAB PO (08:12)
[2017-12-15] MEDS: CLOPIDOGREL 75 MG TAB PO (08:12)
[2017-12-15] MEDS: ATENOLOL 100 MG TAB PO (08:18)
[2017-12-15] MEDS: INSULIN GLARGINE [LANtus] 3 ML PEN SC (08:26)
[2017-12-15] MEDS: HEPARIN 5,000 UNIT/0.5 ML VIAL SC ×3 (08:27→22:21)
[2017-12-15] MEDS: ATORVASTATIN 20 MG TAB PO (20:15)
[2017-12-15] MEDS: TAMSULOSIN (SR) 0.4 MG CAP PO (20:15)
[2017-12-16] MEDS: ONDANSETRON 4 MG INJ IV (00:07)
[2017-12-16] MEDS: VANCOMYCIN 750 MG in SOD CHLORIDE 0.9% 150 ML IVPB ×2 (01:13→13:45)
[2017-12-16] MEDS: HYDROCODONE/APAP (5/325) TAB PO ×4 (01:20→21:57)
[2017-12-16] MEDS: ACCU-CHEK XX (02:00)
[2017-12-16] MEDS: PIPER-TAZO 3.375 GM IV (PMX) 100 ML IVPB ×4 (05:39→23:58)
[2017-12-16] MEDS: INSULIN ASPART [NOVOLOG] 3 ML PEN SC ×7 (08:15→20:28)
[2017-12-16] MEDS: POLYETHYLENE GLYCOL 17 GM PACKET PO (08:50)
[2017-12-16] MEDS: INSULIN GLARGINE [LANtus] 3 ML PEN SC (08:51)
[2017-12-16] MEDS: CLOPIDOGREL 75 MG TAB PO (08:52)
[2017-12-16] MEDS: FUROSEMIDE 20 MG TAB PO (08:52)
[2017-12-16] MEDS: ATENOLOL 100 MG TAB PO (08:53)
[2017-12-16] MEDS: LOSARTAN 50 MG TAB PO ×2 (08:55→20:18)
[2017-12-16] MEDS: HEPARIN 5,000 UNIT/0.5 ML VIAL SC ×2 (08:55→20:27)
[2017-12-16] MEDS: NIFEdipine (XL) 60 MG TAB PO (08:55)
[2017-12-16] MEDS: ASPIRIN 81 MG TAB PO (08:56)
[2017-12-16] MEDS: ATORVASTATIN 20 MG TAB PO (20:18)
[2017-12-16] MEDS: morphine LIQ (10 MG/5 ML) CUP PO (20:18)
[2017-12-16] MEDS: TAMSULOSIN (SR) 0.4 MG CAP PO (20:18)
[2017-12-17] MEDS: VANCOMYCIN 750 MG in SOD CHLORIDE 0.9% 150 ML IVPB ×2 (00:53→13:27)
[2017-12-17] MEDS: ACCU-CHEK XX (01:00)
[2017-12-17] MEDS: HYDROCODONE/APAP (5/325) TAB PO ×4 (04:36→22:24)
[2017-12-17] MEDS: PIPER-TAZO 3.375 GM IV (PMX) 100 ML IVPB ×4 (05:04→23:23)
[2017-12-17 06:39] LABS: BLOOD UREA NITROGEN 10 mg/dl (7-20)
[2017-12-17] MEDS: INSULIN ASPART [NOVOLOG] 3 ML PEN SC ×7 (08:15→20:26)
[2017-12-17] MEDS: CLOPIDOGREL 75 MG TAB PO (08:40)
[2017-12-17] MEDS: POLYETHYLENE GLYCOL 17 GM PACKET PO (08:40)
[2017-12-17] MEDS: NIFEdipine (XL) 60 MG TAB PO (08:40)
[2017-12-17] MEDS: ASPIRIN 81 MG TAB PO (08:40)
[2017-12-17] MEDS: LOSARTAN 50 MG TAB PO ×2 (08:41→20:23)
[2017-12-17] MEDS: FUROSEMIDE 20 MG TAB PO (08:41)
[2017-12-17] MEDS: ATENOLOL 100 MG TAB PO (08:43)
[2017-12-17] MEDS: HEPARIN 5,000 UNIT/0.5 ML VIAL SC ×2 (08:49→20:26)
[2017-12-17] MEDS: INSULIN GLARGINE [LANtus] 3 ML PEN SC (08:49)
[2017-12-17] MEDS: ONDANSETRON 4 MG INJ IV (10:14)
[2017-12-17] MEDS: TAMSULOSIN (SR) 0.4 MG CAP PO (20:21)
[2017-12-17] MEDS: ATORVASTATIN 20 MG TAB PO (20:21)
[2017-12-18] MEDS: VANCOMYCIN 750 MG in SOD CHLORIDE 0.9% 150 ML IVPB ×2 (00:03→13:39)
[2017-12-18] MEDS: ACCU-CHEK XX (01:40)
[2017-12-18] MEDS: ZOLPIDEM 5 MG TAB PO ×2 (02:29→20:32)
[2017-12-18] MEDS: HYDROCODONE/APAP (5/325) TAB PO ×4 (04:49→21:45)
[2017-12-18] MEDS: PIPER-TAZO 3.375 GM IV (PMX) 100 ML IVPB ×3 (05:20→17:10)
[2017-12-18 06:19] LABS: ADD MAN DIFF? NO
[2017-12-18 06:30] LABS: BASOPHILS % 0.2 % (0.0-2.0); EOSINOPHILS # 0.3 10^3/ul (0.0-0.5); EOSINOPHILS % 3.1 % (0.0-7.0); HEMATOCRIT 26.5 % (42.0-52.0); HEMOGLOBIN 8.7 g/dl (14.0-18.0); LYMPHOCYTES # 2.3 10^3/ul (0.8-2.9); LYMPHOCYTES % 22.7 % (15.0-51.0); MEAN CORPUSCULAR HEMOGLOBIN 28.2 pg (29.0-33.0); MEAN CORPUSCULAR HGB CONC 32.8 g/dl (32.0-37.0); MEAN CORPUSCULAR VOLUME 85.8 fl (82.0-101.0); MEAN PLATELET VOLUME 9.6 fl (7.4-10.4); MONOCYTE # 1.3 10^3/ul (0.3-0.9); MONOCYTES % 12.5 % (0.0-11.0); NEUTROPHILS % 59.7 % (39.0-77.0); PLATELET COUNT 269 10^3/UL (140-415); RED BLOOD COUNT 3.09 10^6/ul (4.70-6.10); RED CELL DISTRIBUTION WIDTH 12.9 % (11.5-14.5)
[2017-12-18 07:04] LABS: ANION GAP 15 (8-16); BLOOD UREA NITROGEN 9 mg/dl (7-20); CALCIUM 8.7 mg/dl (8.4-10.2); CARBON DIOXIDE 25 mmol/L (21-31); CHLORIDE 103 mmol/L (97-110); CREATININE 0.74 mg/dl (0.61-1.24); GLUCOSE 153 mg/dl (70-220); MAGNESIUM 1.6 mg/dl (1.7-2.5); POTASSIUM 3.9 mmol/L (3.5-5.1); SODIUM 139 mmol/L (135-144)
[2017-12-18] MEDS: INSULIN ASPART [NOVOLOG] 3 ML PEN SC ×7 (07:51→20:39)
[2017-12-18] MEDS: ASPIRIN 81 MG TAB PO (08:17)
[2017-12-18] MEDS: CLOPIDOGREL 75 MG TAB PO (08:18)
[2017-12-18] MEDS: POLYETHYLENE GLYCOL 17 GM PACKET PO (08:18)
[2017-12-18] MEDS: LOSARTAN 50 MG TAB PO ×2 (08:18→20:31)
[2017-12-18] MEDS: FUROSEMIDE 20 MG TAB PO (08:18)
[2017-12-18] MEDS: NIFEdipine (XL) 60 MG TAB PO (08:18)
[2017-12-18] MEDS: ATENOLOL 100 MG TAB PO (08:19)
[2017-12-18] MEDS: INSULIN GLARGINE [LANtus] 3 ML PEN SC (08:26)
[2017-12-18] MEDS: HEPARIN 5,000 UNIT/0.5 ML VIAL SC ×2 (08:26→20:39)
[2017-12-18 13:21] LABS: VANCOMYCIN,TROUGH 16.3 ug/ml (10.0-20.0)
[2017-12-18] MEDS: TAMSULOSIN (SR) 0.4 MG CAP PO (20:31)
[2017-12-18] MEDS: ATORVASTATIN 20 MG TAB PO (20:31)
[2017-12-19] MEDS: PIPER-TAZO 3.375 GM IV (PMX) 100 ML IVPB ×5 (00:08→23:45)
[2017-12-19] MEDS: VANCOMYCIN 500MG/NS (PMX) 100 ML IVPB ×2 (01:00→13:31)
[2017-12-19] MEDS: ACCU-CHEK XX (02:00)
[2017-12-19] MEDS: HYDROCODONE/APAP (5/325) TAB PO ×5 (03:05→23:46)
[2017-12-19] MEDS: INSULIN ASPART [NOVOLOG] 3 ML PEN SC ×7 (08:15→20:59)
[2017-12-19] MEDS: INSULIN GLARGINE [LANtus] 3 ML PEN SC (08:27)
[2017-12-19] MEDS: HEPARIN 5,000 UNIT/0.5 ML VIAL SC ×2 (09:00→20:58)
[2017-12-19] MEDS: CLOPIDOGREL 75 MG TAB PO (09:43)
[2017-12-19] MEDS: ASPIRIN 81 MG TAB PO (09:43)
[2017-12-19] MEDS: LOSARTAN 50 MG TAB PO ×3 (09:43→21:18)
[2017-12-19] MEDS: NIFEdipine (XL) 60 MG TAB PO (09:43)
[2017-12-19] MEDS: FUROSEMIDE 20 MG TAB PO (09:44)
[2017-12-19] MEDS: ATENOLOL 100 MG TAB PO (09:44)
[2017-12-19] MEDS: POLYETHYLENE GLYCOL 17 GM PACKET PO (09:45)
[2017-12-19] MEDS: TAMSULOSIN (SR) 0.4 MG CAP PO (20:58)
[2017-12-19] MEDS: ATORVASTATIN 20 MG TAB PO (20:58)
[2017-12-19] MEDS: ZOLPIDEM 5 MG TAB PO (22:40)
[2017-12-20] MEDS: VANCOMYCIN 500MG/NS (PMX) 100 ML IVPB ×2 (01:10→13:00)
[2017-12-20] MEDS: ACCU-CHEK XX (01:38)
[2017-12-20] MEDS: INSULIN ASPART [NOVOLOG] 3 ML PEN SC ×4 (05:00→17:30)
[2017-12-20] MEDS: HYDROCODONE/APAP (5/325) TAB PO ×3 (05:31→20:13)
[2017-12-20] MEDS: PIPER-TAZO 3.375 GM IV (PMX) 100 ML IVPB (05:31)
[2017-12-20 06:50] LABS: BLOOD UREA NITROGEN 9 mg/dl (7-20)
[2017-12-20 06:50] LABS: CREATININE 0.86 mg/dl (0.61-1.24)
[2017-12-20] MEDS: LOSARTAN 50 MG TAB PO ×2 (08:30→20:12)
[2017-12-20] MEDS: FUROSEMIDE 20 MG TAB PO (08:30)
[2017-12-20] MEDS: ASPIRIN 81 MG TAB PO (08:30)
[2017-12-20] MEDS: ATENOLOL 100 MG TAB PO (08:31)
[2017-12-20] MEDS: CLOPIDOGREL 75 MG TAB PO (08:31)
[2017-12-20] MEDS: NIFEdipine (XL) 60 MG TAB PO (08:31)
[2017-12-20] MEDS: POLYETHYLENE GLYCOL 17 GM PACKET PO (08:31)
[2017-12-20] MEDS: HEPARIN 5,000 UNIT/0.5 ML VIAL SC ×2 (08:32→20:15)
[2017-12-20] MEDS: INSULIN GLARGINE [LANtus] 3 ML PEN SC ×2 (08:33→09:32)
[2017-12-20] MEDS ORDERED: FENTAnyl 50 MCG/ML VIAL ×2 (12:58→13:57)
[2017-12-20] MEDS ORDERED: MIDAZOLAM 1 MG/ML 2 ML INJ ×2 (12:58→13:30)
[2017-12-20] MEDS ORDERED: LABETALOL HCL 20MG INJ (13:29)
[2017-12-20] MEDS ORDERED: PROPOFOL 20 ML (13:48)
[2017-12-20] MEDS ORDERED: HYDROmorphONE 2 MG/ML SYG (14:00)
[2017-12-20] MEDS: Insulin NOVOLOG SS MILD Algorithm (SS with meals and bedtime) SC ×2 (17:31→21:00)
[2017-12-20] MEDS ORDERED: INSULIN ASPART [NOVOLOG] 3 ML PEN SC (18:00)
[2017-12-20] MEDS: TAMSULOSIN (SR) 0.4 MG CAP PO (20:12)
[2017-12-20] MEDS: ATORVASTATIN 20 MG TAB PO (20:12)
[2017-12-20] MEDS: ONDANSETRON 4 MG INJ IV (20:18)
[2017-12-20] MEDS: SENNA/DOCUSATE NA (8.6MG/50MG) TAB PO (22:22)
[2017-12-20] MEDS: ZOLPIDEM 5 MG TAB PO (22:29)
[2017-12-21] MEDS: HYDROCODONE/APAP (5/325) TAB PO ×5 (00:47→20:11)
[2017-12-21] MEDS: VANCOMYCIN 500MG/NS (PMX) 100 ML IVPB ×2 (00:47→14:18)
[2017-12-21] MEDS: hydrALAzine 20 MG INJ IV (00:52)
[2017-12-21] MEDS: ACCU-CHEK XX (01:59)
[2017-12-21] MEDS: Insulin NOVOLOG SS MILD Algorithm (SS with meals and bedtime) SC ×4 (07:54→20:24)
[2017-12-21] MEDS: INSULIN ASPART [NOVOLOG] 3 ML PEN SC ×5 (08:00→21:00)
[2017-12-21] MEDS: NIFEdipine (XL) 60 MG TAB PO (08:48)
[2017-12-21] MEDS: ASPIRIN 81 MG TAB PO (08:48)
[2017-12-21] MEDS: ATENOLOL 100 MG TAB PO (08:49)
[2017-12-21] MEDS: FUROSEMIDE 20 MG TAB PO (08:49)
[2017-12-21] MEDS: CLOPIDOGREL 75 MG TAB PO (08:50)
[2017-12-21] MEDS: POLYETHYLENE GLYCOL 17 GM PACKET PO (08:50)
[2017-12-21] MEDS: LOSARTAN 50 MG TAB PO ×2 (08:50→20:10)
[2017-12-21] MEDS: INSULIN GLARGINE [LANtus] 3 ML PEN SC (08:56)
[2017-12-21] MEDS: HEPARIN 5,000 UNIT/0.5 ML VIAL SC ×2 (08:56→20:24)
[2017-12-21] MEDS: ONDANSETRON 4 MG INJ IV (09:55)
[2017-12-21] MEDS ORDERED: LIDOCAINE 1% (MPF) 5 ML VIAL SC ×2 (12:00→14:30)
[2017-12-21] MEDS ORDERED: ONDANSETRON 4 MG INJ IV (15:00)
[2017-12-21] MEDS ORDERED: VANCOMYCIN 750 MG in SOD CHLORIDE 0.9% 150 ML IVPB (15:00)
[2017-12-21] MEDS ORDERED: morphine 2 MG INJ IV (15:00)
[2017-12-21] MEDS ORDERED: PIPER-TAZO 3.375 GM IV (PMX) 100 ML IVPB (15:00)
[2017-12-21] MEDS ORDERED: INSULIN ASPART [NOVOLOG] 3 ML PEN SC (18:00)
[2017-12-21] MEDS: TAMSULOSIN (SR) 0.4 MG CAP PO (20:10)
[2017-12-21] MEDS: ATORVASTATIN 20 MG TAB PO (20:10)
[2017-12-22] MEDS: HYDROCODONE/APAP (5/325) TAB PO ×6 (00:04→23:09)
[2017-12-22] MEDS: ZOLPIDEM 5 MG TAB PO ×2 (00:04→23:08)
[2017-12-22] MEDS: INSULIN ASPART [NOVOLOG] 3 ML PEN SC ×4 (01:00→17:49)
[2017-12-22] MEDS: ACCU-CHEK XX (01:30)
[2017-12-22] MEDS: VANCOMYCIN 500MG/NS (PMX) 100 ML IVPB ×2 (01:32→13:26)
[2017-12-22] MEDS: Insulin NOVOLOG SS MILD Algorithm (SS with meals and bedtime) SC ×4 (08:00→21:00)
[2017-12-22] MEDS: INSULIN GLARGINE [LANtus] 3 ML PEN SC (08:19)
[2017-12-22] MEDS: ASPIRIN 81 MG TAB PO (09:19)
[2017-12-22] MEDS: CLOPIDOGREL 75 MG TAB PO (09:19)
[2017-12-22] MEDS: FUROSEMIDE 20 MG TAB PO (09:19)
[2017-12-22] MEDS: ATENOLOL 100 MG TAB PO (09:21)
[2017-12-22] MEDS: POLYETHYLENE GLYCOL 17 GM PACKET PO (09:21)
[2017-12-22] MEDS: HEPARIN 5,000 UNIT/0.5 ML VIAL SC ×2 (09:24→21:07)
[2017-12-22] MEDS: NIFEdipine (XL) 60 MG TAB PO (10:24)
[2017-12-22] MEDS: LOSARTAN 50 MG TAB PO ×2 (10:25→21:00)
[2017-12-22] MEDS: ONDANSETRON 4 MG INJ IV (10:34)
[2017-12-22] MEDS: IBUPROFEN 600 MG TAB PO (12:14)
[2017-12-22 12:41] LABS: VANCOMYCIN,TROUGH 10.1 ug/ml (10.0-20.0)
[2017-12-22] MEDS: TAMSULOSIN (SR) 0.4 MG CAP PO (21:02)
[2017-12-22] MEDS: ATORVASTATIN 20 MG TAB PO (21:02)
[2017-12-23] MEDS: VANCOMYCIN 750 MG in SOD CHLORIDE 0.9% 150 ML IVPB ×2 (01:18→12:14)
[2017-12-23] MEDS: ACCU-CHEK XX (02:00)
[2017-12-23] MEDS: HYDROCODONE/APAP (5/325) TAB PO ×5 (05:11→22:18)
[2017-12-23 06:57] LABS: CREATININE 0.99 mg/dl (0.61-1.24)
[2017-12-23 06:57] LABS: BLOOD UREA NITROGEN 18 mg/dl (7-20)
[2017-12-23] MEDS: INSULIN ASPART [NOVOLOG] 3 ML PEN SC ×3 (08:25→17:29)
[2017-12-23] MEDS: INSULIN GLARGINE [LANtus] 3 ML PEN SC (08:25)
[2017-12-23] MEDS: HEPARIN 5,000 UNIT/0.5 ML VIAL SC ×2 (08:25→21:32)
[2017-12-23] MEDS: Insulin NOVOLOG SS MILD Algorithm (SS with meals and bedtime) SC ×4 (08:25→21:00)
[2017-12-23] MEDS: CLOPIDOGREL 75 MG TAB PO (08:26)
[2017-12-23] MEDS: ASPIRIN 81 MG TAB PO (08:26)
[2017-12-23] MEDS: FUROSEMIDE 20 MG TAB PO (08:27)
[2017-12-23] MEDS: LOSARTAN 50 MG TAB PO ×2 (08:27→21:27)
[2017-12-23] MEDS: NIFEdipine (XL) 60 MG TAB PO (08:28)
[2017-12-23] MEDS: POLYETHYLENE GLYCOL 17 GM PACKET PO (08:30)
[2017-12-23] MEDS: ATENOLOL 100 MG TAB PO (08:31)
[2017-12-23] MEDS: ONDANSETRON 4 MG INJ IV (14:13)
[2017-12-23] MEDS: ATORVASTATIN 20 MG TAB PO (21:26)
[2017-12-23] MEDS: TAMSULOSIN (SR) 0.4 MG CAP PO (21:26)
[2017-12-23] MEDS: ZOLPIDEM 5 MG TAB PO (23:38)
[2017-12-24] MEDS: VANCOMYCIN 750 MG in SOD CHLORIDE 0.9% 150 ML IVPB ×2 (01:31→12:50)
[2017-12-24] MEDS: ACCU-CHEK XX (01:46)
[2017-12-24] MEDS: HYDROCODONE/APAP (5/325) TAB PO ×5 (03:12→20:45)
[2017-12-24] MEDS: Insulin NOVOLOG SS MILD Algorithm (SS with meals and bedtime) SC ×4 (08:00→20:52)
[2017-12-24] MEDS: INSULIN ASPART [NOVOLOG] 3 ML PEN SC ×3 (08:07→17:23)
[2017-12-24] MEDS: INSULIN GLARGINE [LANtus] 3 ML PEN SC (08:11)
[2017-12-24] MEDS: POLYETHYLENE GLYCOL 17 GM PACKET PO (08:59)
[2017-12-24] MEDS: ASPIRIN 81 MG TAB PO (08:59)
[2017-12-24] MEDS: CLOPIDOGREL 75 MG TAB PO (09:00)
[2017-12-24] MEDS: LOSARTAN 50 MG TAB PO ×2 (09:00→20:44)
[2017-12-24] MEDS: ATENOLOL 100 MG TAB PO (09:00)
[2017-12-24] MEDS: NIFEdipine (XL) 60 MG TAB PO (09:01)
[2017-12-24] MEDS: FUROSEMIDE 20 MG TAB PO (09:01)
[2017-12-24] MEDS: HEPARIN 5,000 UNIT/0.5 ML VIAL SC ×2 (09:03→20:52)
[2017-12-24] MEDS: ACETAMINOPHEN 325 MG TAB PO (09:10)
[2017-12-24] MEDS: ONDANSETRON 4 MG INJ IV (13:59)
[2017-12-24] MEDS: TAMSULOSIN (SR) 0.4 MG CAP PO (20:44)
[2017-12-24] MEDS: ATORVASTATIN 20 MG TAB PO (20:44)
[2017-12-24] MEDS: ZOLPIDEM 5 MG TAB PO (23:23)
[2017-12-25] MEDS: HYDROCODONE/APAP (5/325) TAB PO ×4 (00:40→16:53)
[2017-12-25] MEDS: VANCOMYCIN 750 MG in SOD CHLORIDE 0.9% 150 ML IVPB ×2 (00:40→13:06)
[2017-12-25] MEDS: ACCU-CHEK XX (02:02)
[2017-12-25] MEDS: Insulin NOVOLOG SS MILD Algorithm (SS with meals and bedtime) SC ×3 (08:00→17:45)
[2017-12-25] MEDS: INSULIN ASPART [NOVOLOG] 3 ML PEN SC ×3 (08:50→18:00)
[2017-12-25] MEDS: HEPARIN 5,000 UNIT/0.5 ML VIAL SC (09:07)
[2017-12-25] MEDS: CLOPIDOGREL 75 MG TAB PO (09:08)
[2017-12-25] MEDS: LOSARTAN 50 MG TAB PO (09:08)
[2017-12-25] MEDS: NIFEdipine (XL) 60 MG TAB PO (09:08)
[2017-12-25] MEDS: ASPIRIN 81 MG TAB PO (09:09)
[2017-12-25] MEDS: FUROSEMIDE 20 MG TAB PO (09:09)
[2017-12-25] MEDS: ATENOLOL 100 MG TAB PO (09:09)
[2017-12-25] MEDS: INSULIN GLARGINE [LANtus] 3 ML PEN SC (09:14)
[2017-12-25] MEDS: POLYETHYLENE GLYCOL 17 GM PACKET PO (11:40)
== END 2017-12-25 19:55 | disposition home health service (06) | DRG 271 ==
LOC: E/R 14:37 → MS2 16:30
PROC: 04CK3ZZ Extirpation of Matter from Right Femoral Artery, Percutaneous Approach (ICD-10-PCS; principal; 2017-12-14 07:10)
PROC: 04CM3ZZ Extirpation of Matter from Right Popliteal Artery, Percutaneous Approach (ICD-10-PCS; 2017-12-14 07:10)
PROC: 047P3ZZ Dilation of Right Anterior Tibial Artery, Percutaneous Approach (ICD-10-PCS; 2017-12-14 07:10)
PROC: 047K3ZZ Dilation of Right Femoral Artery, Percutaneous Approach (ICD-10-PCS; 2017-12-14 07:10)
PROC: 047M3ZZ Dilation of Right Popliteal Artery, Percutaneous Approach (ICD-10-PCS; 2017-12-14 07:10)
PROC: 0KBV0ZZ Excision of Right Foot Muscle, Open Approach (ICD-10-PCS; 2017-12-14 07:10)
PROC: 02HV33Z Insertion of Infusion Device into Superior Vena Cava, Percutaneous Approach (ICD-10-PCS; 2017-12-14 07:10)
PROC: B40D1ZZ Plain Radiography of Aorta and Bilateral Lower Extremity Arteries using Low Osmolar Contrast (ICD-10-PCS; 2017-12-14 07:10)
DX: E11.52 Type 2 diabetes mellitus with diabetic peripheral angiopathy with gangrene (principal); I96 Gangrene, not elsewhere classified; R65.10 Systemic inflammatory response syndrome (SIRS) of non-infectious origin without acute organ dysfunction; M86.9 Osteomyelitis, unspecified; L02.611 Cutaneous abscess of right foot; E11.621 Type 2 diabetes mellitus with foot ulcer; I10 Essential (primary) hypertension; Z89.512 Acquired absence of left leg below knee; Z95.1 Presence of aortocoronary bypass graft; Z79.4 Long term (current) use of insulin; R20.0 Anesthesia of skin; G40.909 Epilepsy, unspecified, not intractable, without status epilepticus; B95.62 Methicillin resistant Staphylococcus aureus infection as the cause of diseases classified elsewhere
CPT/HCPCS: 36415; 36569; 71045; 73630; 75710; 76937; 80048; 80053; 80202; 81003; 82565; 82962; 83036; 83605; 83735; 84100; 84484; 84520; 85025; 85610; 85730; 87040; 87070; 87075; 87081; 87086; 87102; 87116; 88304; 93005; 93880; 96374; 96375; 99285-25

== ENCOUNTER 2018-01-01 14:56 | Inpatient (IN) | payer MEDICARE, OTHER ==
[2018-01-01] MEDS: ONDANSETRON 4 MG INJ IV ×2 (16:56→19:40)
[2018-01-01] MEDS: morphine 2 MG INJ IV ×2 (16:56→19:40)
[2018-01-01 17:21] LABS: WHITE BLOOD COUNT 12.3 10^3/ul (4.8-10.8)
[2018-01-01 17:21] LABS: ABNORMAL IP MESSAGE 1; HEMATOCRIT 22.5 % (42.0-52.0); HEMOGLOBIN 7.3 g/dl (14.0-18.0); MEAN CORPUSCULAR HEMOGLOBIN 27.8 pg (29.0-33.0); MEAN CORPUSCULAR HGB CONC 32.4 g/dl (32.0-37.0); MEAN CORPUSCULAR VOLUME 85.6 fl (82.0-101.0); MEAN PLATELET VOLUME 10.2 fl (7.4-10.4); PLATELET COUNT 318 10^3/UL (140-415); POSITIVE DIFF @See below; RED BLOOD COUNT 2.63 10^6/ul (4.70-6.10); RED CELL DISTRIBUTION WIDTH 13.9 % (11.5-14.5)
[2018-01-01 17:23] LABS: ADD MAN DIFF? YES
[2018-01-01 17:41] LABS: INR 1.17; PROTIME 15.1 Sec (11.9-14.9); PT RATIO 1.2
[2018-01-01 17:42] LABS: ALANINE AMINOTRANSFERASE 87 IU/L (13-69); ALBUMIN 3.2 g/dl (3.3-4.9); ALKALINE PHOSPHATASE 120 IU/L (42-121); ANION GAP 14 (8-16); ASPARTATE AMINO TRANSFERASE 49 IU/L (15-46); BILIRUBIN,INDIRECT 0.2 mg/dl (0-1.1); BILIRUBIN,TOTAL 0.2 mg/dl (0.2-1.3); BLOOD UREA NITROGEN 21 mg/dl (7-20); CALCIUM 8.4 mg/dl (8.4-10.2); CARBON DIOXIDE 22 mmol/L (21-31); CHLORIDE 102 mmol/L (97-110); CREATININE 0.85 mg/dl (0.61-1.24); GLUCOSE 119 mg/dl (70-220); PARTIAL THROMBOPLASTIN TIME 39.1 Sec (25.0-35.0); POTASSIUM 4.5 mmol/L (3.5-5.1); SODIUM 133 mmol/L (135-144); TOTAL PROTEIN 6.4 g/dl (6.1-8.1)
[2018-01-01 17:42] LABS: LACTIC ACID 1.1 mmol/L (0.5-2.0)
[2018-01-01 18:06] LABS: ADD UMIC NO; UR ASCORBIC ACID 20 mg/dL (NEGATIVE); UR BILIRUBIN (Dip) NEGATIVE (NEGATIVE); UR BLOOD (Dip) NEGATIVE (NEGATIVE); UR CLARITY CLEAR (CLEAR); UR COLOR YELLOW (YELLOW); UR GLUCOSE (Dip) NEGATIVE (NEGATIVE); UR KETONES (Dip) NEGATIVE (NEGATIVE); UR LEUKOCYTE ESTERASE (Dip) NEGATIVE Leu/ul (NEGATIVE); UR NITRITE (Dip) NEGATIVE (NEGATIVE); UR SPECIFIC GRAVITY (Dip) 1.011 (1.003-1.030); UR TOTAL PROTEIN (Dip) NEGATIVE (NEGATIVE); UR UROBILINOGEN (Dip) NEGATIVE (NEGATIVE)
[2018-01-01 18:25] LABS: ANISOCYTOSIS 1+ (0-0); BASOPHIL #M 0.1 10^3/ul (0.0-0.0); BASOPHILS % (M) 1 % (0-2); EOSINOPHILS % (M) 2 % (0-7); GIANT THROMBO% (M) 2 % (0-0); LYMPHOCYTES % (M) 25 % (15-51); MICROCYTOSIS 1+ (0-0); MONOCYTE #M 1.2 10^3/ul (0.3-0.9); MONOCYTES % (M) 10 % (0-11); PLATELET ESTIMATE NORMAL; POLYCHROMASIA 2+ (0-0); SEGMENTED NEUTROPHILS (M) % 62 % (39-77); SMUDGE%M 26 % (0-0)
[2018-01-01] MEDS: PIPER-TAZO 3.375 GM IV (PMX) 100 ML IVPB (19:24)
[2018-01-01] MEDS: VANCOMYCIN 1 GM (PMX) 250 ML IVPB (20:15)
[2018-01-01] MEDS ORDERED: NACL 0.9% 3 ML SYG IV (20:30)
[2018-01-01] MEDS ORDERED: VANCOMYCIN IV PER PHARMACY XX (21:00)
[2018-01-02 05:53] LABS: ADD MAN DIFF? NO
[2018-01-02 05:56] LABS: WHITE BLOOD COUNT 9.3 10^3/ul (4.8-10.8)
[2018-01-02 05:56] LABS: BASOPHILS % 0.2 % (0.0-2.0); EOSINOPHILS # 0.4 10^3/ul (0.0-0.5); EOSINOPHILS % 4.5 % (0.0-7.0); HEMATOCRIT 24.2 % (42.0-52.0); LYMPHOCYTES % 21.4 % (15.0-51.0); MEAN CORPUSCULAR HEMOGLOBIN 28.4 pg (29.0-33.0); MEAN CORPUSCULAR HGB CONC 33.1 g/dl (32.0-37.0); MEAN CORPUSCULAR VOLUME 85.8 fl (82.0-101.0); MEAN PLATELET VOLUME 9.3 fl (7.4-10.4); MONOCYTE # 1.5 10^3/ul (0.3-0.9); MONOCYTES % 16.2 % (0.0-11.0); NEUTROPHIL # 5.3 10^3/ul (1.6-7.5); NEUTROPHILS % 56.7 % (39.0-77.0); PLATELET COUNT 327 10^3/UL (140-415); RED BLOOD COUNT 2.82 10^6/ul (4.70-6.10); RED CELL DISTRIBUTION WIDTH 13.9 % (11.5-14.5)
[2018-01-02 06:34] LABS: ALBUMIN/GLOBULIN RATIO 1.03; ANION GAP 13 (8-16); BILIRUBIN,TOTAL 0.1 mg/dl (0.2-1.3)
[2018-01-02 06:51] LABS: SODIUM 140 mmol/L (135-144)
[2018-01-02 06:52] LABS: ALANINE AMINOTRANSFERASE 70 IU/L (13-69); ALBUMIN 3.4 g/dl (3.3-4.9); ALKALINE PHOSPHATASE 112 IU/L (42-121); ASPARTATE AMINO TRANSFERASE 40 IU/L (15-46); BILIRUBIN,INDIRECT 0.1 mg/dl (0-1.1); BLOOD UREA NITROGEN 15 mg/dl (7-20); CALCIUM 8.9 mg/dl (8.4-10.2); CARBON DIOXIDE 27 mmol/L (21-31); CHLORIDE 105 mmol/L (97-110); CREATININE 0.91 mg/dl (0.61-1.24); GLUCOSE 85 mg/dl (70-220); MAGNESIUM 1.7 mg/dl (1.7-2.5); POTASSIUM 4.5 mmol/L (3.5-5.1); TOTAL PROTEIN 6.7 g/dl (6.1-8.1)
[2018-01-02] MEDS ORDERED: NON-FORMULARY/PATIENT OWN MED (Insulin Lispro (Humalog Kwikpen U-100) 6 UNIT) SQ (07:30)
[2018-01-02] MEDS: VANCOMYCIN 1 GM 250 ML IVPB (08:19)
[2018-01-02] MEDS: DIAZEPAM 5 MG TAB PO (08:38)
[2018-01-02] MEDS: HYDROCODONE/APAP (5/325) TAB PO ×3 (08:38→22:52)
[2018-01-02] MEDS ORDERED: METHADONE 5 MG TAB PO (09:00)
[2018-01-02] MEDS ORDERED: INSULIN GLARGINE HUM REC ANLOG SC (09:00)
[2018-01-02] MEDS ORDERED: GLUCOSE GEL 15 GRAM TUBE BUCCAL (09:00)
[2018-01-02] MEDS ORDERED: DEXTROSE 50% 50 ML SYRINGE IV (09:00)
[2018-01-02] MEDS ORDERED: GLUCOSE GEL 15 GRAM TUBE PO ×2 (09:00)
[2018-01-02] MEDS ORDERED: NON-FORMULARY/PATIENT OWN MED (Omeprazole* 40 MG) PO (09:00)
[2018-01-02] MEDS ORDERED: [UNRECOGNIZED DRUG - OTHER] SC (09:00)
[2018-01-02] MEDS ORDERED: GLUCAGON 1 MG INJ IM (09:00)
[2018-01-02] MEDS: INSULIN GLARGINE [LANTus] (100 UNITS/ML) SYG SC ×2 (11:00→12:11)
[2018-01-02] MEDS: NIFEdipine (XL) 30 MG TAB PO (11:00)
[2018-01-02] MEDS: ATENOLOL 100 MG TAB PO ×2 (11:00→22:52)
[2018-01-02] MEDS: INSULIN ASPART [NOVOLOG] 3 ML PEN SC ×6 (11:00→21:30)
[2018-01-02] MEDS: FERROUS SULFATE (EC) 325 MG TAB PO ×2 (11:01→22:52)
[2018-01-02] MEDS: PANTOPRAZOLE (EC) 40 MG TAB PO (12:30)
[2018-01-02] MEDS: PIPER-TAZO 3.375 GM IV (PMX) 100 ML IVPB ×2 (12:52→18:54)
[2018-01-02 14:42] LABS: ADD MAN DIFF? NO
[2018-01-02 14:47] LABS: WHITE BLOOD COUNT 8.1 10^3/ul (4.8-10.8)
[2018-01-02 14:47] LABS: HEMATOCRIT 23.2 % (42.0-52.0); HEMOGLOBIN 7.6 g/dl (14.0-18.0); MEAN CORPUSCULAR HEMOGLOBIN 28.4 pg (29.0-33.0); MEAN CORPUSCULAR HGB CONC 32.8 g/dl (32.0-37.0); MEAN CORPUSCULAR VOLUME 86.6 fl (82.0-101.0); MEAN PLATELET VOLUME 9.9 fl (7.4-10.4); PLATELET COUNT 306 10^3/UL (140-415); RED BLOOD COUNT 2.68 10^6/ul (4.70-6.10); RED CELL DISTRIBUTION WIDTH 13.9 % (11.5-14.5)
[2018-01-02 15:27] LABS: BAND NEUTROPHILS % (M) 1 % (0-4); EOSINOPHILS % (M) 7 % (0-7); LYMPHOCYTES #M 1.9 10^3/ul (0.8-2.9); LYMPHOCYTES % (M) 24 % (15-51); MONOCYTE #M 1.1 10^3/ul (0.3-0.9); MONOCYTES % (M) 14 % (0-11); PLATELET ESTIMATE NORMAL; POLYCHROMASIA 1+ (0-0); SEG NEUT #M 4.4 10^3/ul (1.6-7.5); SEGMENTED NEUTROPHILS (M) % 54 % (39-77); SMUDGE%M 13 % (0-0)
[2018-01-02 19:50] LABS: ADD MAN DIFF? NO
[2018-01-02 19:53] LABS: WHITE BLOOD COUNT 9.9 10^3/ul (4.8-10.8)
[2018-01-02 19:53] LABS: ABNORMAL IP MESSAGE 1; BASOPHILS % 0.2 % (0.0-2.0); EOSINOPHILS # 0.5 10^3/ul (0.0-0.5); EOSINOPHILS % 4.8 % (0.0-7.0); HEMATOCRIT 24.6 % (42.0-52.0); LYMPHOCYTES # 1.7 10^3/ul (0.8-2.9); LYMPHOCYTES % 17.1 % (15.0-51.0); MEAN CORPUSCULAR HEMOGLOBIN 28.4 pg (29.0-33.0); MEAN CORPUSCULAR HGB CONC 32.5 g/dl (32.0-37.0); MEAN CORPUSCULAR VOLUME 87.2 fl (82.0-101.0); MEAN PLATELET VOLUME 9.6 fl (7.4-10.4); MONOCYTE # 1.8 10^3/ul (0.3-0.9); MONOCYTES % 18.1 % (0.0-11.0); NEUTROPHIL # 5.9 10^3/ul (1.6-7.5); NEUTROPHILS % 59.2 % (39.0-77.0); PLATELET COUNT 319 10^3/UL (140-415); POSITIVE DIFF @See below; RED BLOOD COUNT 2.82 10^6/ul (4.70-6.10); RED CELL DISTRIBUTION WIDTH 13.6 % (11.5-14.5)
[2018-01-02] MEDS: VANCOMYCIN 750 MG in SOD CHLORIDE 0.9% 150 ML IVPB (22:51)
[2018-01-02] MEDS: ATORVASTATIN 20 MG TAB PO (22:52)
[2018-01-02 23:55] LABS: ADD MAN DIFF? NO
[2018-01-02 23:58] LABS: BASOPHILS % 0.2 % (0.0-2.0); EOSINOPHILS # 0.5 10^3/ul (0.0-0.5); EOSINOPHILS % 5.7 % (0.0-7.0); HEMOGLOBIN 7.4 g/dl (14.0-18.0); LYMPHOCYTES # 1.6 10^3/ul (0.8-2.9); LYMPHOCYTES % 18.1 % (15.0-51.0); MEAN CORPUSCULAR HEMOGLOBIN 27.8 pg (29.0-33.0); MEAN CORPUSCULAR HGB CONC 32.2 g/dl (32.0-37.0); MEAN CORPUSCULAR VOLUME 86.5 fl (82.0-101.0); MEAN PLATELET VOLUME 9.8 fl (7.4-10.4); MONOCYTE # 1.5 10^3/ul (0.3-0.9); MONOCYTES % 17.1 % (0.0-11.0); NEUTROPHIL # 5.1 10^3/ul (1.6-7.5); NEUTROPHILS % 57.8 % (39.0-77.0); PLATELET COUNT 305 10^3/UL (140-415); RED BLOOD COUNT 2.66 10^6/ul (4.70-6.10); RED CELL DISTRIBUTION WIDTH 13.8 % (11.5-14.5)
[2018-01-02 23:58] LABS: WHITE BLOOD COUNT 8.8 10^3/ul (4.8-10.8)
[2018-01-03] MEDS: ZOLPIDEM 5 MG TAB PO ×2 (00:47→23:14)
[2018-01-03] MEDS: INSULIN ASPART [NOVOLOG] 3 ML PEN SC ×9 (00:51→20:31)
[2018-01-03] MEDS: PIPER-TAZO 3.375 GM IV (PMX) 100 ML IVPB ×5 (00:52→23:16)
[2018-01-03] MEDS: ACCU-CHEK XX (01:03)
[2018-01-03] MEDS: HYDROCODONE/APAP (10/325) TAB PO ×4 (05:26→20:30)
[2018-01-03] MEDS: PANTOPRAZOLE (EC) 40 MG TAB PO (05:26)
[2018-01-03 06:01] LABS: ADD MAN DIFF? NO
[2018-01-03 06:05] LABS: WHITE BLOOD COUNT 7.5 10^3/ul (4.8-10.8)
[2018-01-03 06:05] LABS: BASOPHILS % 0.3 % (0.0-2.0); EOSINOPHILS # 0.5 10^3/ul (0.0-0.5); EOSINOPHILS % 6.2 % (0.0-7.0); HEMATOCRIT 22.3 % (42.0-52.0); HEMOGLOBIN 7.2 g/dl (14.0-18.0); LYMPHOCYTES # 1.8 10^3/ul (0.8-2.9); LYMPHOCYTES % 24.4 % (15.0-51.0); MEAN CORPUSCULAR HEMOGLOBIN 27.6 pg (29.0-33.0); MEAN CORPUSCULAR HGB CONC 32.3 g/dl (32.0-37.0); MEAN CORPUSCULAR VOLUME 85.4 fl (82.0-101.0); MEAN PLATELET VOLUME 10.1 fl (7.4-10.4); MONOCYTE # 1.3 10^3/ul (0.3-0.9); MONOCYTES % 17.1 % (0.0-11.0); NEUTROPHIL # 3.8 10^3/ul (1.6-7.5); NEUTROPHILS % 51.2 % (39.0-77.0); PLATELET COUNT 291 10^3/UL (140-415); RED BLOOD COUNT 2.61 10^6/ul (4.70-6.10); RED CELL DISTRIBUTION WIDTH 13.9 % (11.5-14.5)
[2018-01-03 06:56] LABS: CALCIUM 8.4 mg/dl (8.4-10.2); CARBON DIOXIDE 27 mmol/L (21-31); GLUCOSE 76 mg/dl (70-220); MAGNESIUM 1.8 mg/dl (1.7-2.5); PHOSPHORUS 4.5 mg/dl (2.5-4.9); POTASSIUM 3.9 mmol/L (3.5-5.1); SODIUM 138 mmol/L (135-144)
[2018-01-03] MEDS: VANCOMYCIN 750 MG in SOD CHLORIDE 0.9% 150 ML IVPB (08:03)
[2018-01-03] MEDS: DIAZEPAM 5 MG TAB PO (08:04)
[2018-01-03] MEDS: FERROUS SULFATE (EC) 325 MG TAB PO ×2 (08:04→20:30)
[2018-01-03] MEDS: ATENOLOL 100 MG TAB PO ×2 (08:05→20:31)
[2018-01-03] MEDS: NIFEdipine (XL) 30 MG TAB PO (08:05)
[2018-01-03 08:16] LABS: ANION GAP 9 (8-16); BLOOD UREA NITROGEN 14 mg/dl (7-20); CHLORIDE 106 mmol/L (97-110)
[2018-01-03] MEDS: ATORVASTATIN 20 MG TAB PO (20:30)
[2018-01-03 20:50] LABS: VANCOMYCIN,TROUGH 21.1 ug/ml (10.0-20.0)
[2018-01-03] MEDS ORDERED: HEPARIN 5,000 UNIT/0.5 ML VIAL SC (21:00)
[2018-01-04] MEDS: INSULIN ASPART [NOVOLOG] 3 ML PEN SC ×9 (00:36→20:57)
[2018-01-04] MEDS: HYDROCODONE/APAP (10/325) TAB PO ×6 (00:36→21:43)
[2018-01-04] MEDS: VANCOMYCIN 500MG/NS (PMX) 100 ML IVPB (00:36)
[2018-01-04] MEDS: ACCU-CHEK XX (01:04)
[2018-01-04 05:46] LABS: ADD MAN DIFF? NO
[2018-01-04] MEDS: PIPER-TAZO 3.375 GM IV (PMX) 100 ML IVPB ×2 (05:46→12:27)
[2018-01-04] MEDS: PANTOPRAZOLE (EC) 40 MG TAB PO (05:46)
[2018-01-04 06:01] LABS: WHITE BLOOD COUNT 8.5 10^3/ul (4.8-10.8)
[2018-01-04 06:01] LABS: BASOPHILS % 0.2 % (0.0-2.0); EOSINOPHILS # 0.5 10^3/ul (0.0-0.5); EOSINOPHILS % 5.4 % (0.0-7.0); HEMOGLOBIN 7.9 g/dl (14.0-18.0); LYMPHOCYTES # 1.7 10^3/ul (0.8-2.9); LYMPHOCYTES % 19.5 % (15.0-51.0); MEAN CORPUSCULAR HEMOGLOBIN 28.3 pg (29.0-33.0); MEAN CORPUSCULAR HGB CONC 32.9 g/dl (32.0-37.0); MEAN PLATELET VOLUME 10.1 fl (7.4-10.4); MONOCYTE # 1.3 10^3/ul (0.3-0.9); MONOCYTES % 15.1 % (0.0-11.0); NEUTROPHILS % 58.7 % (39.0-77.0); PLATELET COUNT 298 10^3/UL (140-415); RED BLOOD COUNT 2.79 10^6/ul (4.70-6.10); RED CELL DISTRIBUTION WIDTH 13.9 % (11.5-14.5)
[2018-01-04 06:27] LABS: ANION GAP 9 (8-16); BLOOD UREA NITROGEN 14 mg/dl (7-20); CALCIUM 8.3 mg/dl (8.4-10.2); CARBON DIOXIDE 26 mmol/L (21-31); CHLORIDE 109 mmol/L (97-110); CREATININE 1.32 mg/dl (0.61-1.24); GLUCOSE 123 mg/dl (70-220); POTASSIUM 4.2 mmol/L (3.5-5.1); SODIUM 140 mmol/L (135-144)
[2018-01-04] MEDS: FERROUS SULFATE (EC) 325 MG TAB PO ×2 (08:08→20:53)
[2018-01-04] MEDS: DIAZEPAM 5 MG TAB PO (08:08)
[2018-01-04] MEDS: NIFEdipine (XL) 30 MG TAB PO (08:09)
[2018-01-04] MEDS: ATENOLOL 100 MG TAB PO ×2 (08:09→20:54)
[2018-01-04] MEDS: INSULIN GLARGINE [LANTus] (100 UNITS/ML) SYG SC (08:15)
[2018-01-04] MEDS: SOD CHLORIDE 0.9% 1,000 ML IV ×2 (12:33→21:44)
[2018-01-04] MEDS ORDERED: VANCOMYCIN 750 MG in SOD CHLORIDE 0.9% 150 ML IVPB (13:00)
[2018-01-04] MEDS: DAPTOMYCIN 375 MG in SOD CHLORIDE 0.9% 100 ML IVPB (17:28)
[2018-01-04] MEDS: ATORVASTATIN 20 MG TAB PO (20:53)
[2018-01-04] MEDS: ONDANSETRON 4 MG INJ IV (22:41)
[2018-01-04] MEDS: ZOLPIDEM 5 MG TAB PO (23:20)
[2018-01-05] MEDS: INSULIN ASPART [NOVOLOG] 3 ML PEN SC ×9 (01:00→21:00)
[2018-01-05] MEDS: ACCU-CHEK XX (01:58)
[2018-01-05] MEDS: SOD CHLORIDE 0.9% 1,000 ML IV ×2 (02:00→17:37)
[2018-01-05] MEDS: HYDROCODONE/APAP (10/325) TAB PO ×4 (02:04→21:27)
[2018-01-05 05:47] LABS: ADD MAN DIFF? NO
[2018-01-05] MEDS: PANTOPRAZOLE (EC) 40 MG TAB PO (05:49)
[2018-01-05 05:52] LABS: ABNORMAL IP MESSAGE 1; BASOPHILS % 0.3 % (0.0-2.0); EOSINOPHILS # 0.4 10^3/ul (0.0-0.5); EOSINOPHILS % 5.4 % (0.0-7.0); HEMATOCRIT 21.3 % (42.0-52.0); LYMPHOCYTES # 1.9 10^3/ul (0.8-2.9); LYMPHOCYTES % 23.4 % (15.0-51.0); MEAN CORPUSCULAR HEMOGLOBIN 27.8 pg (29.0-33.0); MEAN CORPUSCULAR HGB CONC 31.9 g/dl (32.0-37.0); MEAN CORPUSCULAR VOLUME 86.9 fl (82.0-101.0); MONOCYTE # 1.1 10^3/ul (0.3-0.9); MONOCYTES % 13.8 % (0.0-11.0); NEUTROPHIL # 4.4 10^3/ul (1.6-7.5); PLATELET COUNT 283 10^3/UL (140-415); POSITIVE DIFF @See below; RED BLOOD COUNT 2.45 10^6/ul (4.70-6.10); RED CELL DISTRIBUTION WIDTH 14.3 % (11.5-14.5)
[2018-01-05 05:52] LABS: WHITE BLOOD COUNT 7.9 10^3/ul (4.8-10.8)
[2018-01-05 06:14] LABS: HEMOGLOBIN 6.8 g/dl (14.0-18.0)
[2018-01-05 06:24] LABS: CREATINE KINASE < 20 IU/L (23-200)
[2018-01-05 06:40] LABS: ANION GAP 13 (8-16); BLOOD UREA NITROGEN 12 mg/dl (7-20); CALCIUM 8.1 mg/dl (8.4-10.2); CARBON DIOXIDE 24 mmol/L (21-31); CHLORIDE 108 mmol/L (97-110); CREATININE 1.02 mg/dl (0.61-1.24); GLUCOSE 100 mg/dl (70-220); POTASSIUM 4.1 mmol/L (3.5-5.1); SODIUM 141 mmol/L (135-144)
[2018-01-05] MEDS: NIFEdipine (XL) 30 MG TAB PO (08:20)
[2018-01-05] MEDS: DIAZEPAM 5 MG TAB PO (08:20)
[2018-01-05] MEDS: FERROUS SULFATE (EC) 325 MG TAB PO ×2 (08:20→21:27)
[2018-01-05] MEDS: ATENOLOL 100 MG TAB PO ×2 (08:20→21:30)
[2018-01-05] MEDS: INSULIN GLARGINE [LANTus] (100 UNITS/ML) SYG SC (08:22)
[2018-01-05 13:41] LABS: IMMEDIATE SPIN CROSSMATCH 1 1
[2018-01-05] MEDS: DAPTOMYCIN 375 MG in SOD CHLORIDE 0.9% 100 ML IVPB (17:31)
[2018-01-05] MEDS: ATORVASTATIN 20 MG TAB PO (21:28)
[2018-01-05] MEDS: ACETAMINOPHEN 325 MG TAB PO (23:02)
[2018-01-06] MEDS: INSULIN ASPART [NOVOLOG] 3 ML PEN SC ×9 (01:00→21:00)
[2018-01-06] MEDS: HYDROCODONE/APAP (10/325) TAB PO ×5 (01:33→23:20)
[2018-01-06] MEDS: ACCU-CHEK XX (01:36)
[2018-01-06] MEDS: SOD CHLORIDE 0.9% 1,000 ML IV ×4 (04:00→23:16)
[2018-01-06 06:04] LABS: ADD MAN DIFF? NO
[2018-01-06] MEDS: PANTOPRAZOLE (EC) 40 MG TAB PO (06:11)
[2018-01-06 06:13] LABS: BASOPHILS % 0.3 % (0.0-2.0); EOSINOPHILS # 0.4 10^3/ul (0.0-0.5); EOSINOPHILS % 4.9 % (0.0-7.0); HEMATOCRIT 26.4 % (42.0-52.0); LYMPHOCYTES # 2.1 10^3/ul (0.8-2.9); MEAN CORPUSCULAR HEMOGLOBIN 28.2 pg (29.0-33.0); MEAN CORPUSCULAR HGB CONC 32.6 g/dl (32.0-37.0); MEAN CORPUSCULAR VOLUME 86.6 fl (82.0-101.0); MEAN PLATELET VOLUME 9.9 fl (7.4-10.4); MONOCYTE # 1.2 10^3/ul (0.3-0.9); MONOCYTES % 13.2 % (0.0-11.0); NEUTROPHIL # 5.1 10^3/ul (1.6-7.5); NEUTROPHILS % 57.4 % (39.0-77.0); PLATELET COUNT 297 10^3/UL (140-415); RED BLOOD COUNT 3.05 10^6/ul (4.70-6.10); RED CELL DISTRIBUTION WIDTH 14.6 % (11.5-14.5)
[2018-01-06 06:25] LABS: ANION GAP 12 (8-16); BLOOD UREA NITROGEN 12 mg/dl (7-20); CALCIUM 8.3 mg/dl (8.4-10.2); CARBON DIOXIDE 25 mmol/L (21-31); CHLORIDE 110 mmol/L (97-110); CREATININE 1.08 mg/dl (0.61-1.24); GLUCOSE 90 mg/dl (70-220); POTASSIUM 4.3 mmol/L (3.5-5.1); SODIUM 143 mmol/L (135-144)
[2018-01-06 06:55] LABS: HEMOGLOBIN 8.6 g/dl (14.0-18.0)
[2018-01-06] MEDS: FERROUS SULFATE (EC) 325 MG TAB PO ×2 (09:51→23:16)
[2018-01-06] MEDS: NIFEdipine (XL) 30 MG TAB PO (09:59)
[2018-01-06] MEDS: ATENOLOL 100 MG TAB PO ×2 (10:04→23:16)
[2018-01-06] MEDS: DIAZEPAM 5 MG TAB PO (10:04)
[2018-01-06] MEDS: INSULIN GLARGINE [LANTus] (100 UNITS/ML) SYG SC (10:07)
[2018-01-06] MEDS: DAPTOMYCIN 375 MG in SOD CHLORIDE 0.9% 100 ML IVPB (16:19)
[2018-01-06] MEDS: ATORVASTATIN 20 MG TAB PO (23:16)
[2018-01-06] MEDS: ZOLPIDEM 5 MG TAB PO ×2 (23:20)
[2018-01-07] MEDS: ACCU-CHEK XX (02:00)
[2018-01-07] MEDS: PANTOPRAZOLE (EC) 40 MG TAB PO (05:12)
[2018-01-07] MEDS: HYDROCODONE/APAP (10/325) TAB PO ×4 (05:12→20:30)
[2018-01-07] MEDS: INSULIN ASPART [NOVOLOG] 3 ML PEN SC ×7 (08:15→20:38)
[2018-01-07] MEDS: FERROUS SULFATE (EC) 325 MG TAB PO ×2 (08:39→20:31)
[2018-01-07] MEDS: DIAZEPAM 5 MG TAB PO (08:39)
[2018-01-07] MEDS: NIFEdipine (XL) 30 MG TAB PO (08:41)
[2018-01-07] MEDS: ATENOLOL 100 MG TAB PO ×2 (08:41→20:34)
[2018-01-07] MEDS: SOD CHLORIDE 0.9% 1,000 ML IV ×3 (10:00→22:51)
[2018-01-07] MEDS: INSULIN GLARGINE [LANTus] (100 UNITS/ML) SYG SC (10:02)
[2018-01-07] MEDS: BISACODYL (EC) 5 MG TAB PO (13:55)
[2018-01-07] MEDS: DAPTOMYCIN 375 MG in SOD CHLORIDE 0.9% 100 ML IVPB (15:37)
[2018-01-07] MEDS: DOCUSATE SODIUM 100 MG CAP PO (15:45)
[2018-01-07] MEDS: ATORVASTATIN 20 MG TAB PO (20:31)
[2018-01-08] MEDS: HYDROCODONE/APAP (10/325) TAB PO ×5 (00:31→20:48)
[2018-01-08] MEDS: ZOLPIDEM 5 MG TAB PO ×2 (01:02→23:42)
[2018-01-08] MEDS: ACCU-CHEK XX (02:00)
[2018-01-08] MEDS: PANTOPRAZOLE (EC) 40 MG TAB PO (05:20)
[2018-01-08] MEDS: SOD CHLORIDE 0.9% 1,000 ML IV ×4 (06:00→20:48)
[2018-01-08] MEDS: INSULIN ASPART [NOVOLOG] 3 ML PEN SC ×7 (08:15→20:45)
[2018-01-08] MEDS: INSULIN GLARGINE [LANTus] (100 UNITS/ML) SYG SC (08:58)
[2018-01-08] MEDS: DIAZEPAM 5 MG TAB PO (08:59)
[2018-01-08] MEDS: FERROUS SULFATE (EC) 325 MG TAB PO ×2 (09:00→20:41)
[2018-01-08] MEDS: NIFEdipine (XL) 30 MG TAB PO (09:02)
[2018-01-08] MEDS: ATENOLOL 100 MG TAB PO ×2 (09:02→20:42)
[2018-01-08] MEDS: POLYETHYLENE GLYCOL 17 GM PACKET PO (13:19)
[2018-01-08 15:27] LABS: IRON 40 ug/dl (35-150)
[2018-01-08 15:36] LABS: % IRON SATURATION 14 % SAT (22-52); TOTAL IRON BINDING CAPACITY 277 ug/dl (241-421)
[2018-01-08] MEDS: DAPTOMYCIN 375 MG in SOD CHLORIDE 0.9% 100 ML IVPB (15:47)
[2018-01-08] MEDS: ATORVASTATIN 20 MG TAB PO (20:41)
[2018-01-09] MEDS: HYDROCODONE/APAP (10/325) TAB PO ×5 (01:03→22:47)
[2018-01-09] MEDS: ACCU-CHEK XX (02:00)
[2018-01-09] MEDS: SOD CHLORIDE 0.9% 1,000 ML IV ×2 (05:42→21:09)
[2018-01-09] MEDS: PANTOPRAZOLE (EC) 40 MG TAB PO (05:42)
[2018-01-09] MEDS: POLYETHYLENE GLYCOL 17 GM PACKET PO (08:00)
[2018-01-09] MEDS: ATENOLOL 100 MG TAB PO ×2 (08:01→20:59)
[2018-01-09] MEDS: FERROUS SULFATE (EC) 325 MG TAB PO ×2 (08:01→21:00)
[2018-01-09] MEDS: NIFEdipine (XL) 30 MG TAB PO (08:02)
[2018-01-09] MEDS: INSULIN GLARGINE [LANTus] (100 UNITS/ML) SYG SC (08:04)
[2018-01-09] MEDS: INSULIN ASPART [NOVOLOG] 3 ML PEN SC ×9 (08:05→21:09)
[2018-01-09] MEDS: DIAZEPAM 5 MG TAB PO (09:26)
[2018-01-09] MEDS: morphine 2 MG INJ IV ×2 (15:03→20:59)
[2018-01-09] MEDS: DEXTROSE 50% 50 ML SYRINGE IV (15:53)
[2018-01-09] MEDS: DAPTOMYCIN 375 MG in SOD CHLORIDE 0.9% 100 ML IVPB (16:18)
[2018-01-09 17:10] LABS: GLUCOSE 180 mg/dl (70-220)
[2018-01-09] MEDS: ATORVASTATIN 20 MG TAB PO (20:59)
[2018-01-09] MEDS: ZOLPIDEM 5 MG TAB PO (23:33)
[2018-01-10] MEDS: ACCU-CHEK XX (02:16)
[2018-01-10] MEDS: HYDROCODONE/APAP (10/325) TAB PO ×2 (04:14→08:53)
[2018-01-10] MEDS: SOD CHLORIDE 0.9% 1,000 ML IV ×2 (04:15→08:00)
[2018-01-10] MEDS: PANTOPRAZOLE (EC) 40 MG TAB PO (06:07)
[2018-01-10] MEDS: ACETAMINOPHEN 325 MG TAB PO (06:07)
[2018-01-10] MEDS: INSULIN ASPART [NOVOLOG] 3 ML PEN SC ×4 (08:15→12:00)
[2018-01-10] MEDS: FERROUS SULFATE (EC) 325 MG TAB PO (08:28)
[2018-01-10] MEDS: DIAZEPAM 5 MG TAB PO (08:29)
[2018-01-10] MEDS: NIFEdipine (XL) 30 MG TAB PO (08:29)
[2018-01-10] MEDS: ATENOLOL 100 MG TAB PO (08:30)
[2018-01-10] MEDS: POLYETHYLENE GLYCOL 17 GM PACKET PO (08:30)
[2018-01-10] MEDS: INSULIN GLARGINE [LANTus] (100 UNITS/ML) SYG SC (08:36)
[2018-01-10] MEDS ORDERED: morphine LIQ (10 MG/5 ML) CUP PO (14:30)
== END 2018-01-10 14:15 | disposition home health service (06) | DRG 603 ==
LOC: MS2 19:17 → FTE 14:56 → MS2 01-02 20:40
DX: L02.611 Cutaneous abscess of right foot (principal); N17.9 Acute kidney failure, unspecified; L97.416 Non-pressure chronic ulcer of right heel and midfoot with bone involvement without evidence of necrosis; D63.8 Anemia in other chronic diseases classified elsewhere; E78.5 Hyperlipidemia, unspecified; I10 Essential (primary) hypertension; Z89.512 Acquired absence of left leg below knee; Z95.1 Presence of aortocoronary bypass graft; K74.60 Unspecified cirrhosis of liver; B18.2 Chronic viral hepatitis C; E11.51 Type 2 diabetes mellitus with diabetic peripheral angiopathy without gangrene; Z98.62 Peripheral vascular angioplasty status; Z87.891 Personal history of nicotine dependence; E11.610 Type 2 diabetes mellitus with diabetic neuropathic arthropathy; E11.621 Type 2 diabetes mellitus with foot ulcer
CPT/HCPCS: 36415; 36430; 73630; 80048; 80053; 80202; 81003; 82550; 82947; 82962; 83540; 83605; 83735; 84100; 85025; 85610; 85730; 86850; 86900; 86901; 86920; 87040; 87081; 87086; 93922; 96374; 96375; 99285-25

== ENCOUNTER 2018-04-10 14:54 | Day surgery (SDC) | payer MEDICARE, OTHER ==
[2018-04-10 15:39] LABS: ADD MAN DIFF? NO
[2018-04-10 15:41] LABS: BASOPHILS % 0.2 % (0.0-2.0); EOSINOPHILS # 0.3 10^3/ul (0.0-0.5); EOSINOPHILS % 2.7 % (0.0-7.0); LYMPHOCYTES # 1.8 10^3/ul (0.8-2.9); LYMPHOCYTES % 19.5 % (15.0-51.0); MEAN CORPUSCULAR HEMOGLOBIN 24.1 pg (29.0-33.0); MEAN CORPUSCULAR HGB CONC 31.4 g/dl (32.0-37.0); MEAN CORPUSCULAR VOLUME 76.8 fl (82.0-101.0); MEAN PLATELET VOLUME 9.3 fl (7.4-10.4); MONOCYTE # 1.4 10^3/ul (0.3-0.9); MONOCYTES % 15.2 % (0.0-11.0); NEUTROPHIL # 5.7 10^3/ul (1.6-7.5); NEUTROPHILS % 61.6 % (39.0-77.0); PLATELET COUNT 386 10^3/UL (140-415); RED BLOOD COUNT 3.15 10^6/ul (4.70-6.10); RED CELL DISTRIBUTION WIDTH 15.1 % (11.5-14.5)
[2018-04-10 15:41] LABS: WHITE BLOOD COUNT 9.3 10^3/ul (4.8-10.8)
[2018-04-10 15:42] LABS: HOLD TRANSMISSIONS 1
[2018-04-10 15:46] LABS: HEMATOCRIT 24.2 % (42.0-52.0); HEMOGLOBIN 7.6 g/dl (14.0-18.0)
[2018-04-10] MEDS ORDERED: POLYMYXIN/BACITRACIN 1L IRRIG (15:47)
== END 2018-04-10 16:28 | disposition home or self-care (01) ==
LOC: SDS 14:54
DX: L97.514 Non-pressure chronic ulcer of other part of right foot with necrosis of bone (principal); Z53.8 Procedure and treatment not carried out for other reasons; E11.9 Type 2 diabetes mellitus without complications; I10 Essential (primary) hypertension
CPT/HCPCS: 82962; 85025

== ENCOUNTER 2018-04-10 16:27 | Observation (INO) | payer MEDICARE, OTHER ==
[2018-04-10 17:31] LABS: ADD MAN DIFF? NO
[2018-04-10 17:35] LABS: WHITE BLOOD COUNT 9.6 10^3/ul (4.8-10.8)
[2018-04-10 17:35] LABS: BASOPHILS % 0.3 % (0.0-2.0); EOSINOPHILS # 0.3 10^3/ul (0.0-0.5); EOSINOPHILS % 3.2 % (0.0-7.0); HEMATOCRIT 24.1 % (42.0-52.0); HEMOGLOBIN 7.6 g/dl (14.0-18.0); LYMPHOCYTES # 1.7 10^3/ul (0.8-2.9); LYMPHOCYTES % 18.2 % (15.0-51.0); MEAN CORPUSCULAR HEMOGLOBIN 24.2 pg (29.0-33.0); MEAN CORPUSCULAR HGB CONC 31.5 g/dl (32.0-37.0); MEAN CORPUSCULAR VOLUME 76.8 fl (82.0-101.0); MONOCYTE # 1.1 10^3/ul (0.3-0.9); MONOCYTES % 11.3 % (0.0-11.0); NEUTROPHIL # 6.3 10^3/ul (1.6-7.5); NEUTROPHILS % 66.1 % (39.0-77.0); PLATELET COUNT 314 10^3/UL (140-415); RED BLOOD COUNT 3.14 10^6/ul (4.70-6.10); RED CELL DISTRIBUTION WIDTH 15.2 % (11.5-14.5)
[2018-04-10 18:42] LABS: ALANINE AMINOTRANSFERASE 25 IU/L (13-69); ALBUMIN 3.1 g/dl (3.3-4.9); ALBUMIN/GLOBULIN RATIO 0.75; ALKALINE PHOSPHATASE 83 IU/L (42-121); ANION GAP 11 (8-16); ASPARTATE AMINO TRANSFERASE 22 IU/L (15-46); BILIRUBIN,INDIRECT 0.1 mg/dl (0-1.1); BILIRUBIN,TOTAL 0.1 mg/dl (0.2-1.3); BLOOD UREA NITROGEN 19 mg/dl (7-20); CALCIUM 9.2 mg/dl (8.4-10.2); CARBON DIOXIDE 28 mmol/L (21-31); CHLORIDE 98 mmol/L (97-110); GLUCOSE 125 mg/dl (70-220); POTASSIUM 4.7 mmol/L (3.5-5.1); SODIUM 132 mmol/L (135-144); TOTAL PROTEIN 7.2 g/dl (6.1-8.1)
[2018-04-10 19:05] LABS: INR 1.12; PARTIAL THROMBOPLASTIN TIME 39.1 Sec (23.0-35.0); PROTIME 14.6 Sec (11.9-14.9)
[2018-04-10 19:06] LABS: PT RATIO 1.1
[2018-04-10] MEDS ORDERED: ACETAMINOPHEN 325 MG TAB PO (20:00)
[2018-04-10] MEDS ORDERED: ZOLPIDEM 5 MG TAB PO (20:00)
[2018-04-10] MEDS ORDERED: DOCUSATE SODIUM 100 MG CAP PO (20:00)
[2018-04-10] MEDS ORDERED: BISACODYL (EC) 5 MG TAB PO (20:00)
[2018-04-10] MEDS ORDERED: ONDANSETRON 4 MG TAB PO (20:00)
[2018-04-10] MEDS ORDERED: NACL 0.9% 3 ML SYG IV (20:00)
[2018-04-10] MEDS ORDERED: GLUCAGON 1 MG INJ IM (20:30)
[2018-04-10] MEDS ORDERED: GLUCOSE GEL 15 GRAM TUBE BUCCAL (20:30)
[2018-04-10] MEDS ORDERED: GLUCOSE GEL 15 GRAM TUBE PO ×2 (20:30)
[2018-04-10] MEDS ORDERED: DEXTROSE 50% 50 ML SYRINGE IV ×2 (20:30)
[2018-04-10] MEDS: INSULIN ASPART [NOVOLOG] 3 ML PEN SC (21:00)
[2018-04-10] MEDS: ATENOLOL 100 MG TAB PO (21:00)
[2018-04-10] MEDS ORDERED: HYDROCODONE/APAP (10/325) TAB PO (23:30)
[2018-04-10] MEDS: FERROUS SULFATE (EC) 325 MG TAB PO (23:32)
[2018-04-10] MEDS: ATORVASTATIN 20 MG TAB PO (23:32)
[2018-04-10] MEDS: TAMSULOSIN (SR) 0.4 MG CAP PO (23:33)
[2018-04-10] MEDS: GABAPENTIN 400 MG CAP PO (23:33)
[2018-04-11] MEDS: POLYETHYLENE GLYCOL 17 GM PACKET PO ×2 (01:17→09:38)
[2018-04-11] MEDS: METHADONE 5 MG TAB PO ×4 (01:17→21:00)
[2018-04-11] MEDS: CYCLOBENZAPRINE 10 MG TAB PO ×2 (01:17→20:37)
[2018-04-11] MEDS: DOCUSATE SODIUM 100 MG CAP PO ×3 (01:18→20:38)
[2018-04-11] MEDS: ACCU-CHEK XX (01:48)
[2018-04-11 05:46] LABS: ADD MAN DIFF? NO
[2018-04-11 05:49] LABS: BASOPHILS % 0.3 % (0.0-2.0); EOSINOPHILS # 0.3 10^3/ul (0.0-0.5); EOSINOPHILS % 3.4 % (0.0-7.0); HEMATOCRIT 25.8 % (42.0-52.0); HEMOGLOBIN 8.4 g/dl (14.0-18.0); LYMPHOCYTES # 1.9 10^3/ul (0.8-2.9); LYMPHOCYTES % 20.9 % (15.0-51.0); MEAN CORPUSCULAR HEMOGLOBIN 24.9 pg (29.0-33.0); MEAN CORPUSCULAR HGB CONC 32.6 g/dl (32.0-37.0); MEAN CORPUSCULAR VOLUME 76.6 fl (82.0-101.0); MEAN PLATELET VOLUME 9.2 fl (7.4-10.4); MONOCYTE # 1.4 10^3/ul (0.3-0.9); MONOCYTES % 15.6 % (0.0-11.0); NEUTROPHIL # 5.3 10^3/ul (1.6-7.5); NEUTROPHILS % 59.1 % (39.0-77.0); PLATELET COUNT 372 10^3/UL (140-415); RED BLOOD COUNT 3.37 10^6/ul (4.70-6.10); RED CELL DISTRIBUTION WIDTH 14.9 % (11.5-14.5)
[2018-04-11] MEDS: PANTOPRAZOLE (EC) 40 MG TAB PO (05:59)
[2018-04-11 07:05] LABS: ALBUMIN 3.2 g/dl (3.3-4.9); ALBUMIN/GLOBULIN RATIO 0.86; ALKALINE PHOSPHATASE 81 IU/L (42-121); ANION GAP 11 (8-16); ASPARTATE AMINO TRANSFERASE 25 IU/L (15-46); BILIRUBIN,INDIRECT 0.2 mg/dl (0-1.1); BILIRUBIN,TOTAL 0.2 mg/dl (0.2-1.3); BLOOD UREA NITROGEN 15 mg/dl (7-20); CALCIUM 8.5 mg/dl (8.4-10.2); CARBON DIOXIDE 26 mmol/L (21-31); CHLORIDE 103 mmol/L (97-110); CREATININE 0.75 mg/dl (0.61-1.24); GLUCOSE 115 mg/dl (70-220); SODIUM 136 mmol/L (135-144); TOTAL PROTEIN 6.9 g/dl (6.1-8.1)
[2018-04-11 07:52] LABS: ALANINE AMINOTRANSFERASE 18 IU/L (13-69)
[2018-04-11] MEDS: INSULIN ASPART [NOVOLOG] 3 ML PEN SC ×7 (08:00→20:39)
[2018-04-11] MEDS: INSULIN GLARGINE [LANTus] (100 UNITS/ML) SYG SC (09:00)
[2018-04-11] MEDS: ATENOLOL 100 MG TAB PO ×2 (09:37→20:44)
[2018-04-11] MEDS: GABAPENTIN 400 MG CAP PO ×3 (09:37→20:37)
[2018-04-11] MEDS: DIAZEPAM 5 MG TAB PO (09:38)
[2018-04-11] MEDS: FERROUS SULFATE (EC) 325 MG TAB PO ×2 (09:38→20:38)
[2018-04-11] MEDS: NIFEdipine (XL) 30 MG TAB PO (12:00)
[2018-04-11 15:59] LABS: IMMEDIATE SPIN CROSSMATCH 1 2
[2018-04-11] MEDS: TAMSULOSIN (SR) 0.4 MG CAP PO (20:37)
[2018-04-11] MEDS: ATORVASTATIN 20 MG TAB PO (20:37)
[2018-04-12] MEDS: ACCU-CHEK XX (02:00)
[2018-04-12] MEDS: PANTOPRAZOLE (EC) 40 MG TAB PO (05:28)
[2018-04-12] MEDS: INSULIN ASPART [NOVOLOG] 3 ML PEN SC ×2 (08:00→08:30)
[2018-04-12] MEDS: FERROUS SULFATE (EC) 325 MG TAB PO (08:22)
[2018-04-12] MEDS: DOCUSATE SODIUM 100 MG CAP PO (08:22)
[2018-04-12] MEDS: POLYETHYLENE GLYCOL 17 GM PACKET PO ×2 (08:22→08:34)
[2018-04-12] MEDS: DIAZEPAM 5 MG TAB PO (08:22)
[2018-04-12] MEDS: GABAPENTIN 400 MG CAP PO (08:22)
[2018-04-12] MEDS: ATENOLOL 100 MG TAB PO (08:23)
[2018-04-12] MEDS: METHADONE 5 MG TAB PO (08:24)
[2018-04-12] MEDS: NIFEdipine (XL) 30 MG TAB PO (08:24)
[2018-04-12] MEDS: INSULIN GLARGINE [LANTus] (100 UNITS/ML) SYG SC (08:31)
== END 2018-04-12 11:20 | disposition home or self-care (01) ==
LOC: E/R 16:27 → 2NE 18:57
PROVIDERS: Internal Medicine
DX: D62 Acute posthemorrhagic anemia (principal); D50.0 Iron deficiency anemia secondary to blood loss (chronic); E11.621 Type 2 diabetes mellitus with foot ulcer; E11.42 Type 2 diabetes mellitus with diabetic polyneuropathy; I10 Essential (primary) hypertension; E78.5 Hyperlipidemia, unspecified; N40.0 Benign prostatic hyperplasia without lower urinary tract symptoms; E11.51 Type 2 diabetes mellitus with diabetic peripheral angiopathy without gangrene; Z79.4 Long term (current) use of insulin; Z89.512 Acquired absence of left leg below knee; Z79.899 Other long term (current) drug therapy
CPT/HCPCS: 36415; 36430; 80053; 82728; 82962; 85025; 85610; 85730; 86850; 86900; 86901; 86920; 93005; 99285-25

== ENCOUNTER 2018-05-04 14:06 | Observation (INO) | payer MEDICARE ==
[2018-05-04 19:47] LABS: ADD MAN DIFF? NO
[2018-05-04 19:50] LABS: BASOPHILS % 0.2 % (0.0-2.0); EOSINOPHILS # 0.4 10^3/ul (0.0-0.5); EOSINOPHILS % 2.9 % (0.0-7.0); HEMATOCRIT 36.8 % (42.0-52.0); HEMOGLOBIN 11.8 g/dl (14.0-18.0); LYMPHOCYTES # 3.1 10^3/ul (0.8-2.9); LYMPHOCYTES % 22.5 % (15.0-51.0); MEAN CORPUSCULAR HEMOGLOBIN 24.7 pg (29.0-33.0); MEAN CORPUSCULAR HGB CONC 32.1 g/dl (32.0-37.0); MONOCYTE # 1.5 10^3/ul (0.3-0.9); MONOCYTES % 10.7 % (0.0-11.0); NEUTROPHIL # 8.8 10^3/ul (1.6-7.5); NEUTROPHILS % 63.1 % (39.0-77.0); PLATELET COUNT 400 10^3/UL (140-415); RED BLOOD COUNT 4.78 10^6/ul (4.70-6.10); RED CELL DISTRIBUTION WIDTH 16.4 % (11.5-14.5)
[2018-05-04 20:09] LABS: INR 1.05; PROTIME 13.8 Sec (11.9-14.9); PT RATIO 1.1
[2018-05-04 20:10] LABS: PARTIAL THROMBOPLASTIN TIME 34.3 Sec (23.0-35.0)
[2018-05-04 20:14] LABS: ALANINE AMINOTRANSFERASE 20 IU/L (13-69); ALBUMIN 4.5 g/dl (3.3-4.9); ALBUMIN/GLOBULIN RATIO 0.88; ALKALINE PHOSPHATASE 96 IU/L (42-121); ANION GAP 12 (5-13); ASPARTATE AMINO TRANSFERASE 22 IU/L (15-46); BILIRUBIN,INDIRECT 0.1 mg/dl (0-1.1); BILIRUBIN,TOTAL 0.1 mg/dl (0.2-1.3); BLOOD UREA NITROGEN 25 mg/dl (7-20); CALCIUM 9.7 mg/dl (8.4-10.2); CARBON DIOXIDE 26 mmol/L (21-31); CHLORIDE 98 mmol/L (97-110); CREATININE 0.97 mg/dl (0.61-1.24); Estimated GFR > 60 mL/min (>60); GLUCOSE 99 mg/dl (70-220); LIPASE 39 U/L (23-300); POTASSIUM 4.5 mmol/L (3.5-5.1); SODIUM 136 mmol/L (135-144); TOTAL PROTEIN 9.6 g/dl (6.1-8.1)
[2018-05-04] MEDS: CLOPIDOGREL 75 MG TAB PO (20:18)
[2018-05-04] MEDS: ASPIRIN 81 MG TAB PO (20:18)
[2018-05-04 20:24] LABS: TROPONIN-I < 0.012 ng/ml (0.000-0.120)
[2018-05-04] MEDS: KETOROLAC 15 MG INJ IV (20:33)
[2018-05-05] MEDS ORDERED: ALBUTEROL/IPRATROPIUM (NEB) 3 ML AMP HHN (00:30)
[2018-05-05] MEDS ORDERED: NACL 0.9% 3 ML SYG IV (00:30)
[2018-05-05] MEDS ORDERED: ONDANSETRON 4 MG INJ IV (00:30)
[2018-05-05] MEDS ORDERED: ACETAMINOPHEN 325 MG TAB PO (00:30)
[2018-05-05] MEDS ORDERED: NITROGLYCERIN (SL) 0.4 MG TAB SL (00:30)
[2018-05-05] MEDS ORDERED: GLUCAGON 1 MG INJ IM (01:00)
[2018-05-05] MEDS ORDERED: DEXTROSE 50% 50 ML SYRINGE IV ×2 (01:00)
[2018-05-05] MEDS ORDERED: GLUCOSE GEL 15 GRAM TUBE BUCCAL (01:00)
[2018-05-05] MEDS ORDERED: GLUCOSE GEL 15 GRAM TUBE PO ×2 (01:00)
[2018-05-05 01:03] LABS: CK-MB 0.39 ng/ml (0.0-2.4); TROPONIN-I < 0.012 ng/ml (0.000-0.120)
[2018-05-05 01:05] LABS: CREATINE KINASE < 20 IU/L (23-200)
[2018-05-05] MEDS: HYDROCODONE/APAP (10/325) TAB PO ×3 (01:20→10:26)
[2018-05-05] MEDS: ZOLPIDEM 5 MG TAB PO (01:20)
[2018-05-05 06:24] LABS: ADD MAN DIFF? NO
[2018-05-05 06:30] LABS: BASOPHILS % 0.2 % (0.0-2.0); EOSINOPHILS # 0.3 10^3/ul (0.0-0.5); EOSINOPHILS % 3.2 % (0.0-7.0); HEMATOCRIT 31.2 % (42.0-52.0); HEMOGLOBIN 10.1 g/dl (14.0-18.0); LYMPHOCYTES % 19.2 % (15.0-51.0); MEAN CORPUSCULAR HEMOGLOBIN 25.5 pg (29.0-33.0); MEAN CORPUSCULAR HGB CONC 32.4 g/dl (32.0-37.0); MEAN CORPUSCULAR VOLUME 78.8 fl (82.0-101.0); MEAN PLATELET VOLUME 8.9 fl (7.4-10.4); MONOCYTE # 1.3 10^3/ul (0.3-0.9); MONOCYTES % 12.9 % (0.0-11.0); NEUTROPHIL # 6.5 10^3/ul (1.6-7.5); NEUTROPHILS % 63.9 % (39.0-77.0); PLATELET COUNT 336 10^3/UL (140-415); RED BLOOD COUNT 3.96 10^6/ul (4.70-6.10); RED CELL DISTRIBUTION WIDTH 16.4 % (11.5-14.5)
[2018-05-05 06:30] LABS: WHITE BLOOD COUNT 10.1 10^3/ul (4.8-10.8)
[2018-05-05 06:52] LABS: CREATINE KINASE < 20 IU/L (23-200)
[2018-05-05 07:02] LABS: CK-MB 0.32 ng/ml (0.0-2.4); TROPONIN-I < 0.012 ng/ml (0.000-0.120)
[2018-05-05 07:15] LABS: ALANINE AMINOTRANSFERASE 18 IU/L (13-69); ALBUMIN 3.5 g/dl (3.3-4.9); ALBUMIN/GLOBULIN RATIO 0.89; ALKALINE PHOSPHATASE 78 IU/L (42-121); ANION GAP 8 (5-13); ASPARTATE AMINO TRANSFERASE 14 IU/L (15-46); BILIRUBIN,INDIRECT 0.1 mg/dl (0-1.1); BILIRUBIN,TOTAL 0.1 mg/dl (0.2-1.3); BLOOD UREA NITROGEN 24 mg/dl (7-20); CALCIUM 8.6 mg/dl (8.4-10.2); CARBON DIOXIDE 25 mmol/L (21-31); CHLORIDE 105 mmol/L (97-110); CREATININE 1.03 mg/dl (0.61-1.24); Estimated GFR > 60 mL/min (>60); GLUCOSE 113 mg/dl (70-220); POTASSIUM 4.6 mmol/L (3.5-5.1); SODIUM 138 mmol/L (135-144); TOTAL PROTEIN 7.4 g/dl (6.1-8.1)
[2018-05-05] MEDS ORDERED: INSULIN LISPRO 4 UNIT SQ (07:30)
[2018-05-05 07:47] LABS: IRON 58 ug/dl (35-150)
[2018-05-05 07:56] LABS: % IRON SATURATION 19 % SAT (22-52); TOTAL IRON BINDING CAPACITY 308 ug/dl (241-421)
[2018-05-05] MEDS ORDERED: HEPARIN 5,000 UNIT/0.5 ML VIAL (08:01)
[2018-05-05] MEDS: FERROUS SULFATE (EC) 325 MG TAB PO (08:06)
[2018-05-05] MEDS: GABAPENTIN 300 MG CAP PO (08:06)
[2018-05-05] MEDS: HEPARIN 5,000 UNIT/1 ML VIAL SC (08:16)
[2018-05-05] MEDS: POLYETHYLENE GLYCOL 17 GM PACKET PO (08:57)
[2018-05-05] MEDS: ASPIRIN (EC) 81 MG TAB PO (08:57)
[2018-05-05] MEDS: DIAZEPAM 5 MG TAB PO (08:57)
[2018-05-05] MEDS: ATENOLOL 100 MG TAB PO (08:57)
[2018-05-05] MEDS: INSULIN GLARGINE [LANTus] (100 UNITS/ML) SYG SC (09:12)
[2018-05-05] MEDS: INSULIN ASPART [NOVOLOG] 3 ML PEN SC (09:12)
[2018-05-05] MEDS ORDERED: CYCLOBENZAPRINE 10 MG TAB PO (21:00)
[2018-05-05] MEDS ORDERED: ATORVASTATIN 20 MG TAB PO (21:00)
[2018-05-05] MEDS ORDERED: TAMSULOSIN (SR) 0.4 MG CAP PO (21:00)
== END 2018-05-05 12:00 | disposition home or self-care (01) ==
LOC: TEL 20:22 → E/R 14:06
DX: R07.9 Chest pain, unspecified (principal); E86.0 Dehydration; E11.51 Type 2 diabetes mellitus with diabetic peripheral angiopathy without gangrene; E78.5 Hyperlipidemia, unspecified; L02.611 Cutaneous abscess of right foot; Z89.512 Acquired absence of left leg below knee; G89.4 Chronic pain syndrome; I10 Essential (primary) hypertension; D50.9 Iron deficiency anemia, unspecified; Z79.4 Long term (current) use of insulin
CPT/HCPCS: 36415; 71045; 80053; 82550; 82553; 82728; 82962; 83540; 83690; 84484; 85025; 85610; 85730; 93005; 99285-25; G0378